=== PATIENT | male | born 1945 | race Caucasian/White ===

== ENCOUNTER → 2023-11-08 10:12 | Outpatient (REF) | payer OTHER, SELFPAY | LOC: DHCBS MAIN 10:12 | PROVIDERS: ATTENDING PHYSICIAN Internal Medicine Cardiovascular Disease; FAMILY PHYSICIAN Family Medicine | DX: R93.1 Abnormal findings on diagnostic imaging of heart and coronary circulation (principal) | CPT/HCPCS: 93308 ==

== ENCOUNTER → 2024-08-07 06:34 | Day surgery (SDC) | payer OTHER, SELFPAY | LOC: GI 06:34 | PROVIDERS: ATTENDING PHYSICIAN Internal Medicine Gastroenterology | DX: K57.30 Diverticulosis of large intestine without perforation or abscess without bleeding (principal); K64.0 First degree hemorrhoids; K63.89 Other specified diseases of intestine; K50.00 Crohn's disease of small intestine without complications; K63.3 Ulcer of intestine; K22.70 Barrett's esophagus without dysplasia; K44.9 Diaphragmatic hernia without obstruction or gangrene; R19.7 Diarrhea, unspecified | CPT/HCPCS: 45380; 43239; 88305 ==

== ENCOUNTER → 2024-10-16 07:50 | Outpatient (REF) | payer OTHER, SELFPAY | LOC: MRI 3T 07:50 | PROVIDERS: ATTENDING PHYSICIAN Internal Medicine Gastroenterology; FAMILY PHYSICIAN Family Medicine | DX: K50.012 Crohn's disease of small intestine with intestinal obstruction (principal) | CPT/HCPCS: 72197; 74183; A9585 ==

== ENCOUNTER → 2024-12-22 13:17 | Outpatient (REF) | payer OTHER, SELFPAY | LOC: RAD 13:17 | PROVIDERS: ATTENDING PHYSICIAN Emergency Medicine; PRIMARYCARE PHYSICIAN Family Medicine | DX: R05.1 Acute cough (principal); K44.9 Diaphragmatic hernia without obstruction or gangrene; K21.9 Gastro-esophageal reflux disease without esophagitis | CPT/HCPCS: 71046 ==

== ENCOUNTER 2025-02-02 06:13 | Day surgery (SDC) | payer OTHER, SELFPAY ==
[2025-02-02 09:15] VITALS: BMI 29.4
[2025-02-02 09:16] VITALS: BMI 29.4
[2025-02-02 09:18] VITALS: BP 159/83
[2025-02-02 11:27] VITALS: BP 119/100
[2025-02-02 11:30] VITALS: BP 116/56
[2025-02-02 11:45] VITALS: BP 141/114
[2025-02-02 11:47] VITALS: BP 144/77
== END 2025-02-02 12:00 | disposition home or self-care (01) ==
LOC: GI 06:13
PROVIDERS: ATTENDING PHYSICIAN Internal Medicine Gastroenterology
DX: K86.2 Cyst of pancreas (principal); K86.89 Other specified diseases of pancreas; Q45.3 Other congenital malformations of pancreas and pancreatic duct; R93.3 Abnormal findings on diagnostic imaging of other parts of digestive tract
CPT/HCPCS: 43259

== ENCOUNTER → 2025-03-19 10:46 | Outpatient (REF) | payer OTHER, SELFPAY | LOC: DHSLP 10:46 | PROVIDERS: ATTENDING PHYSICIAN Internal Medicine Critical Care Medicine; FAMILY PHYSICIAN Family Medicine | DX: G47.30 Sleep apnea, unspecified (principal); R06.83 Snoring | CPT/HCPCS: 95800 ==

== ENCOUNTER 2025-03-24 10:22 | Inpatient (IN) | payer OTHER, SELFPAY ==
[2025-03-24] VITALS (59 sets, daily range): BP systolic 94–200; BP diastolic 47–164; BMI 28.4
[2025-03-24 08:47] LABS: Glucose - Point of Care 129 mg/dl (70-99)
--- NOTE | 2025-03-24 08:48 | CON.NEURO ---
Consultation
Order
Date of Consultation: 03/24/25
Requesting Provider: Alonso Delgado MD
Reason for Consult: Stroke alert
Called in: 8:34 AM
Neurology Consultation Note.
HPI: This is an 79-year-old left-handed man who presented to [facility] on 03/24/2025 with left-sided weakness and dysarthria.
According to the patient he woke up around 6:00 in usual state of health. Within 30 minutes he noted that his left arm is clumsy and he dropped his glasses. His spouse noted him having left-sided weakness around 8:15 AM and contacted 911. No
reports of headache, chest pain, recent surgeries, hematochezia or hematuria. Mr. Randall is not on anticoagulants.
ER VS: 130/105-196/110, 116, afebrile
Telemetry�irregular.
PDMP:Testosterone 1.62% Gel Pump
Labs: Normal platelets, PT, PTT
CT/P head-hypoperfusion in the right MCA territory with a central ischemic core of 0 mL, total volume of hypoperfusion of 84 mL, and a penumbra of 84 mL. The mismatch ratio is infinite.
head wo contrast
CTA head/neck-no thrombus or occlusion in the right middle cerebral artery M1 or M2 segments. The right MCA M3 segment demonstrates attenuation of intraluminal contrast, with contrast opacification in the more distal segments, suggesting M3 segment
nonocclusive thrombus.
PMH: Prostate cancer, HTN, vitamin D deficiency, GERD
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
FH: Not contributory
All:NKDA
ROS: Negative for headache, chest pain
NIH Stroke Scale
1A Level of Consciousness: 0/3
1B LOC Questions: 0/2
1C LOC Commands: 0/2
2 Best Gaze: 0/2
3 Visual: 2/3
4 Facial Palsy: 2/3
5A Motor Arm LEFT: 2/4
5B Motor Arm RIGHT: 0/4
6A Motor Leg LEFT: 1/4
6B Motor Leg RIGHT: 0/4
7 Limb Ataxia: 2/2
8 Sensory: 1/2
9 Best Language: 0/3
10 Dysarthria: 1/2
11 Extinction/Inattention: 0/2
Total NIHSS: 11
Assessment and Plan:
I. Acute right M3 territory stroke. Etiology�cardioembolic.
II. New onset of A-fib
III. Vascular encephalopathy
-Telemetry monitoring.
-STAT IV Tenecteplase a single bolus at 0.25 mg/kg
-Please administer IV Labetalol 5-10mg prior TNK administration if BP>180/110
-Neuro checks while in the ED � Q15 minutes.
-Maintain euvolemia using 0.9% NaCl.
-Strictly follow I�s & O�s.
-Avoid antihypertensive medications unless MAP is persistently higher than 130
-Treat persistently elevated MAP>130 with IV Labetalol.
- NPO, especially if the level of arousal is depressed.
-NGT after the 2nd day for nutrition and meds if dysarthria or dysphagia present;
-Maintain elevation of HOB 30-45 degrees.
- Utilize a pneumatic compression device for DVT prophylaxis.
- For anticoagulation-related hemorrhage: aggressive reversal using FFP, Vitamin K, protamine sulfate.
-No antiplatelet agents nor anticoagulants, including heparin, low molecular weight heparin, heparinoids, warfarin, ASA and other antiplatelet agents, and NSAIDs;
-Monitoring of vital signs and neurologic status should be performed every hour.
-For any worsening of neurologic condition:
a.����� STAT head CT
�������������������������������������������������������������� b.����� STAT neurologic consult for evaluation
��������������������������������������������������������������� c.���� STAT Neurosurgical consult for evaluation
���������������������������
-MRI brain wo rocío
-MRA head/neck
-TTE
�-SCD/TEDs
I personally reviewed all radiology and labs along with past medical records pertinent to current medical problems. Total time spent in patient care is 80 minutes.
Thank you for allowing us to participate in the care of this patient. We will continue to follow. Please do not hesitate to contact us with any questions or concerns.
Subjective/Objective
Subjective Data
Date of Service: March 24, 2025
Objective Data
Patient Allergies
No Known Allergies Allergy (Verified 02/02/25 09:01)
Medications
-
Home Medications
�Medication �Instructions �Recorded
cholecalciferol (vitamin D3) 50 2,000 units PO DAILY Supplement 05/30/20
mcg (2,000 unit) tablet
glucosamine sulfate dipotassium Cl 1 cap PO DAILY Supplement 05/30/20
500 mg-chondroitin 400 mg capsule
(Glucosamine Sulfate 2
KCL-Chondroitin)
multivitamin with folic acid 400 1 tab PO DAILY Supplement 05/30/20
mcg tablet (Tab-A-Jean Pierre)
omega 9-hmh-avn-fish oil 300 1 ea PO DAILY Supplement 05/30/20
mg-1,000 mg capsule (Fish Oil)
omeprazole 20 mg capsule,delayed 40 mg PO DAILY Gastrointestinal 05/30/20
release issue
zolpidem 5 mg tablet 2.5 mg PO HSPRN PRN sleep 05/30/20
valsartan 80 mg tablet 160 mg PO DAILY Blood pressure 10/20/21
acetaminophen 325 mg tablet 650 mg (2 x 325 mg) PO Q4HWA 10/30/21
amlodipine 5 mg tablet 5 mg PO DAILY 01/28/23
choline bitartrate 650 mg tablet 650 mg PO DAILY 01/28/23
coenzyme Q10 100 mg capsule 300 mg PO DAILY 01/28/23
(CoQ-10)
garlic 5,000 mg capsule 5,000 mg PO DAILY 01/28/23
Boswellia john extract-turmeric 1 cap PO DAILY 02/02/25
root extract 500 mg capsule
ascorbic acid (vitamin C) 1,000 mg 2,000 mg PO DAILY 02/02/25
tablet (Vitamin C)
ashwagandha extract 3,000 mg PO DAILY 02/02/25
collagen (bovine) 40 mg PO DAILY 02/02/25
testosterone 1 applic topical DAILY 02/02/25
vit C 250 mg-vit E 200 unit-zinc 2 cap PO DAILY 02/02/25
ox 12.5 [id number]-ouddle-zeax
capsule
vitamin B complex 1 tab PO DAILY 02/02/25
vitamin K2 100 mcg capsule 100 mcg PO DAILY 02/02/25
Vital Signs and Labs
-
Vital Signs and Labs:
Vital Signs
Pulse Resp BP Pulse Ox
96 16 133/89 93
03/24/25 09:37 03/24/25 09:37 03/24/25 09:37 03/24/25 09:33
Lab Results
03/24/25 08:44
03/24/25 08:44
PT 13.7 Sec (11.4-14.6) 03/24/25 08:44
INR 1.00 03/24/25 08:44
APTT 32.6 Sec (23.4-35.0) 03/24/25 08:44
Sodium 141 mmol/L (135-145) 03/24/25 08:44
Potassium 3.7 mmol/L (3.5-5.1) 03/24/25 08:44
BUN 13 mg/dl (9-20) 03/24/25 08:44
Glucose 129 mg/dl (70-99) H 03/24/25 08:44
Calcium 8.2 mg/dl (8.4-10.2) L 03/24/25 08:44
Medications
-
Medications:
Generic Name Dose Route Start Last Admin
Trade Name Freq PRN Reason Stop Dose Admin
Acetaminophen 650 mg 03/24/25 08:57
Acetaminophen 325 Mg Tablet PO 04/21/25 08:56
Q4HPRN PRN
FALCON, mild pain, or temp >100.4F
Home Medications
-
Home Medications
cholecalciferol (vitamin D3) 50 mcg (2,000 unit) tablet 2,000 units PO DAILY Supplement 05/30/20
glucosamine sulfate dipotassium Cl 500 mg-chondroitin 400 mg capsule (Glucosamine Sulfate 2 KCL-Chondroitin) 1 cap PO DAILY Supplement 05/30/20
omega 2-yfa-nbh-fish oil 300 mg-1,000 mg capsule (Fish Oil) 1 cap PO DAILY Supplement 05/30/20
omeprazole 20 mg capsule,delayed release 40 mg PO DAILY Gastrointestinal issue 05/30/20
valsartan 80 mg tablet 160 mg PO DAILY Blood pressure 10/20/21
amlodipine 5 mg tablet 5 mg PO DAILY 01/28/23
coenzyme Q10 100 mg capsule (CoQ-10) 400 mg PO DAILY 01/28/23
Boswellia john extract-turmeric root extract 500 mg capsule 1 cap PO DAILY 02/02/25
vitamin K2 100 mcg capsule 100 mcg PO DAILY 02/02/25
ascorbic acid 30 mg-collagen, hydrolyzed 833.3 mg tablet (Collagen Skin Renewal) 1 tab PO DAILY 03/24/25
famotidine 40 mg tablet (Pepcid) 40 mg PO DAILY 03/24/25
fluticasone propionate 44 mcg/actuation HFA aerosol inhaler 1 puff inhalation R BIDPRN PRN sob 03/24/25
magnesium glycinate 100 mg (as glycinate) tablet 100 mg PO DAILY 03/24/25
testosterone 3 pump topical DAILY 03/24/25
vitamin A 2,400 mcg capsule 2,400 mcg PO DAILY 03/24/25
vitamin B complex 1 tab PO DAILY 03/24/25
[2025-03-24 08:57] LABS: % Basophils 0.5 % (0-2); % Eosinophils 2.3 % (0-6); % Immature Granulocytes 0.4 % (0-0.5); % Lymphocytes 16.5 % (20.5-51.1); % Monocytes 7.7 % (1.7-9.3); % Neutrophils 72.6 % (42.2-75.2); Absolute Eosinophils 0.2 10^3/uL (0-0.7); Absolute Lymphocytes 1.4 10^3/uL (1.2-3.4); Absolute Monocytes 0.7 10^3/uL (0.1-0.6); Absolute Neutrophils 6.2 10^3/uL (1.4-6.5); Hemoglobin 13.7 g/dL (13.0-18.0); Mean Corp Hgb Conc. 34.3 g/dL (33.0-37.0); Mean Corpuscular Hgb 29.8 pg (27.0-31.0); Mean Corpuscular Volume 87.1 fL (80.0-94.0); Mean Platelet Volume 8.5 fL (7.4-10.4); Nucleated Red Blood Cells % 0 % (-); Platelet Count 201 10^3/uL (130-400); Red Blood Cell Count 4.59 10^6/uL (4.70-6.10); Red Cell Dist. Width 14.3 % (11.5-14.5); White Blood Cell Count 8.5 10^3/uL (4.8-10.8)
[2025-03-24 09:08] LABS: PT 13.7 Sec (11.4-14.6)
[2025-03-24 09:09] LABS: APTT 32.6 Sec (23.4-35.0)
[2025-03-24] MEDS: TRANDATE 10 MG IV (09:15)
[2025-03-24 09:19] LABS: ALT (SGPT) 14 U/L (0-50); AST (SGOT) 18 U/L (17-59); Alkaline Phosphatase 64 U/L (38-126); Blood Urea Nitrogen 13 mg/dl (9-20); Calcium 8.2 mg/dl (8.4-10.2); Carbon Dioxide 23 mmol/L (22-30); Chloride 110 mmol/L (98-107); Glucose 129 mg/dl (70-99); Potassium 3.7 mmol/L (3.5-5.1); Sodium 141 mmol/L (135-145); Total Bilirubin 1.1 mg/dl (0.2-1.3); Total Protein 6.3 g/dl (6.3-8.2); eGFR > 60.00
[2025-03-24] MEDS: TNKASE 4.4 MG IV (09:21)
--- NOTE | 2025-03-24 09:29 | ED.CVA ---
History of Present Illness
General
Chief Complaint: CVA/TIA Symptoms
Time Seen by Provider: 03/24/25 08:49
Onset of Stroke Symptoms
Onset of symptoms known: Yes
Date of onset of symptoms: 03/24/25
History of Present Illness
History of Present Illness:
Patient presents to the emergency department with strokelike symptoms. States that he was feeling his usual self but around 7 AM to 8AM he began feeling dizzy. He also noticed left-sided weakness and difficulty speaking
Past History
Past History
ED Past Medical History: GERD and HTN
ED Past Surgical History: Appendectomy and Bowel resection
Phy Exam
Physical Exam
Physical Exam:
GENERAL APPEARANCE: NAD, well developed/ well nourished
EYES lids/conjunctiva normal
EARS/NOSE/THROAT Mucous membranes moist, uvula midline without oral pharyngeal erythema, exudate or swelling
HEAD/NECK normocephalic atraumatic, neck is supple.
RESPIRATORY respiratory effort normal, speaks in full sentences, no accessory muscle use. Lungs clear to auscultation without rhonchi, wheezes, rales
CARDIAC irregularly irregular rhythm, tachycardia
ABDOMINAL Soft, ND/NT. No pulsatile masses on exam, rebound tenderness, Gomes sign or pain over Mcburney's point.
MUSCLES/EXTREMITIES No abnormal range of motion, no swelling.
SKIN Warm, pink and dry. No rashes
NEUROLOGICAL patient is awake and alert and oriented x 2. He has some dysarthria. He has a left-sided facial droop that can be overcome. He has a left upper extremity and left lower extremity drift. He has left-sided neglect
Course
Orders/Labs/Results
Orders:
Orders
03/24/25 08:42
CT HEAD STROKE ALERT W/o Cont Urgent
Comment:
Reason For Exam: left side weakness
03/24/25 08:43
Electrocardiogram (*1) Urgent
Reason for Study: Other
Other Reason for Exam: Possible Stroke
Bedside Glucose- Treatment ONCE
Cardiac Monitoring- Treatment ONCE
EKG- Treatment ONCE
IV Insert/Care/Rem.- Treatment PRN
Vital Signs As Directed
Frequency: Other
Weight As Directed
Frequency: Once
Comment: ZERO STRETCHER SCALE FOR ACCURATE WEIGHT
O2 Therapy [RESP] Urgent
Titrate/Wean O2 to maintain O2 sat greater than (%): 93
Special Instructions: MAINTAIN CONTINUOUS O2 SATS > OR = 93%
03/24/25 08:44
Complete Blood Count/With Diff Urgent
Comprehensive Metabolic Panel Urgent
PTT Urgent
Prothrombin Time Urgent
Troponin I Urgent
03/24/25 08:49
CT BRAIN PERF STROKE ALERT Urgent
Comment:
Reason For Exam: L HP
CT HEAD/NECK ANG STROKE ALERT Stat
Comment:
Reason For Exam: stroke
03/24/25 08:57
Code Status As Directed
Resuscitation Status: Full Code
Acetaminophen [Tylenol] 650 mg PO Q4HPRN PRN
03/24/25 08:58
Case Management Consult Once
Case Management Consult: Discharge Planning
DIETARY IP CONSULT Routine
Reason for Consult: stroke/TIA
Press Loader Consult Routine
Consulting Provider: Richard Chin
Was physician already notified: Yes
NEUROLOGY CONSULT Urgent
Consulting Provider: Sneha Christie
Was physician already notified: Yes
Street Vendor Urgent
MR Brain Without Contrast Routine
Comment: complete 24 hrs post tenecteplase administration
Reason For Exam: possible stroke, status post tenecteplase
OK for patient to be off Cardiac Monitoring for MRI: No
Recent pill cam endoscopy?: No
Hemetest Stools As Directed
Comment: hemoccult all stools if patient received tenecteplase
NIH Stroke Scale As Directed
Directions: Other
Comment: NIH stroke Scale to be completed prior to thrombolytic administration, then every 1 hour for 2
hours, then every shift and with change in condition and/or mental status.
Neurological Checks As Directed
Frequency: Per unit guidelines
Additional Instructions:: after start of thrombolytic therapy:
q15min x 2 hrs, q30min x 6 hrs, q1h x 16 hrs, q4h x 24 hrs, then every shift and
with any changes.
Notify MD As Directed
Notify physician if: - Any deterioration, change in neurological status, development of severe headache,
nausea and vomiting, or with any signs of bleeding. (see guidelines for suspected
intracerebral hemorrhage).
- If intracranial hemorrhage is suspected or confirmed by imaging, anticipate need for
osmotic diuretic to maintain euvolemia.
Notify MD As Directed
Notify physician if: Glucose less than 70 or greater than 180.
Anticipate corrective insulin orders.
Notify MD As Directed
Notify physician if: unable to obtain MRI of head within 22-32 hours of tenecteplase administration
- contact Neurology for order for CT of head without contrast
Patient Education As Directed
Type: Stroke education packet
Comment: provide to patient and family
Pneumatic Compression Sleeves As Directed
Type: Knee high
Precautions As Directed
Type of Precautions: Bleeding
Comment: post Bleeding Precaution sign at bedside (if patient received tenecteplase)
Swallow Screening CVA/TIA ONLY As Directed
Comment: NPO until swallow screening completed
If patient FAILS swallow screening:: NPO and Speech consult and aspiration precautions
If patient PASSES swallow screening, diet:: Regular
Thrombolytic Precautions As Directed
Thrombolytic Precautions:: [place] bleeding precautions. Minimize invasive procedures and venipunctures,
avoid IM injections and over-handling patient, and check all puncture sites for
bleeding. Assess the patient and notify provider for signs and symptoms of
internal or serious bleeding, such as changes in vital signs or evidence of blood
in the urine or stool.
Additional instructions: Hemocult all stools.
Apply direct pressure or pressure dressing to any compressible puncture sites.
No ABG sampling or Espinoza insertion after Tenecteplase administration for 24 hours,
unless directed by the Neurologist/Attending.
Vital Signs As Directed
Frequency: q15m
Call for:: BP greater than 180/105 mmHg or less than 100/60 mmHg
Additional Instructions:: after start of thrombolytic therapy:
q15min x 2 hrs, q30min x 6 hrs, q1h x 16 hrs, q4h x 24 hrs, then every shift and
with any changes.
CR Chest Single View Urgent
Reason For Exam: stroke/TIA
Ot Eval And Treat Routine
Physiatry Consult Routine
Consulting Provider: Sneha Christie
Was physician already notified: Yes
Reason for consult: stroke/TIA
Pt Eval And Treat Routine
Activity Level: As Tolerated
Speech Therapy Eval & Treat Routine
DX Deep Vein Thrombosis Video Routine
03/24/25 09:08
Tenecteplase [Tnkase] 22 mg Syringe [Syringe Non-Pump] 0 ml IV NOW
Provider explained risk/benefits to patient &/or caregiver?: Yes
03/24/25 09:12
Labetalol HCl [Trandate] 20 mg .ROUTE .STK-MED ONE
03/24/25 09:14
Labetalol HCl [Trandate] 10 mg IV NOW STA
03/24/25 10:06
Admit/Transfer Patient As Directed
Co-Sign Provider:
Level of Care: Inpatient admission
Assign to:: ICU
Physician / Group: pasricha/medicine
Diagnosis: cva, afib
Reason for Hospitalization: cva s/p tnk; afib
Expected length of stay greater than two midnights?: Yes
ELOS- Estimated Length of Stay in days: 3
I certify the patient meets the requirements for IP care: Yes
PRN Pain Medication Management As Directed
May give lesser potent ordered pain med per pt: Yes
preference::
Protocol:: Medication orders for pain may be administered in a
manner that supports deferring to patient preference
when the pt is:
- Requesting an ordered lesser potent pain medication.
Least to most potent pain medications are defined
as: acetaminophen < NSAID < tramadol < opioids
(morphine, oxycodone, hydromorphone).
- Requesting a lesser dose of the same medication IF
ORDERED.
- Requesting a less intrusive route of administration
if both routes are prescribed by the provider (PO <
IV).
03/24/25 10:23
Acetaminophen [Tylenol] 650 mg PO Q4HPRN PRN
FLUTICASONE PROPIONATE 44 mcg [Flovent 44 Mcg Inhaler] 1 puff INH R BIDPRN PRN sob
03/24/25 10:23
Echo 2D MMode Color/Doppler Routine
Reason for Study: stroke/TIA
Electrocardiogram (*1) Routine
Reason for Study: TIA/Stroke
CARDIOLOGY CONSULT Routine
Consulting Provider: Barrera Tristan
Was physician already notified: Yes
Case Management Consult Once
Case Management Consult: Discharge Planning
DIETARY IP CONSULT Routine
Reason for Consult: stroke/TIA
Press Loader Consult Routine
Consulting Provider: Rojelio Pepe
Was physician already notified: Yes
NEUROLOGY CONSULT Urgent
Consulting Provider: Sneha Christie
Was physician already notified: Yes
Street Vendor Urgent
TSH Reflex To Free T4 Routine
NIH Stroke Scale As Directed
Directions: Other
Comment: NIH stroke Scale to be completed prior to thrombolytic administration, then every 1 hour for 2
hours, then every shift and with change in condition and/or mental status.
Neurological Checks As Directed
Frequency: Per unit guidelines
Additional Instructions:: after start of thrombolytic therapy:
q15min x 2 hrs, q30min x 6 hrs, q1h x 16 hrs, q4h x 24 hrs, then every shift and
with any changes.
Notify MD As Directed
Notify physician if: - Any deterioration, change in neurological status, development of severe headache,
nausea and vomiting, or with any signs of bleeding. (see guidelines for suspected
intracerebral hemorrhage).
- If intracranial hemorrhage is suspected or confirmed by imaging, anticipate need for
osmotic diuretic to maintain euvolemia.
Notify MD As Directed
Notify physician if: Glucose less than 70 or greater than 180.
Anticipate corrective insulin orders.
Notify MD As Directed
Notify physician if: unable to obtain MRI of head within 22-32 hours of tenecteplase administration
- contact Neurology for order for CT of head without contrast
Patient Education As Directed
Type: Stroke education packet
Comment: provide to patient and family
Pneumatic Compression Sleeves As Directed
Type: Knee high
Precautions As Directed
Type of Precautions: Bleeding
Comment: post Bleeding Precaution sign at bedside (if patient received tenecteplase)
Swallow Screening CVA/TIA ONLY As Directed
Comment: NPO until swallow screening completed
If patient FAILS swallow screening:: NPO and Speech consult and aspiration precautions
If patient PASSES swallow screening, diet:: Cholesterol Lowering
Thrombolytic Precautions As Directed
Thrombolytic Precautions:: [place] bleeding precautions. Minimize invasive procedures and venipunctures,
avoid IM injections and over-handling patient, and check all puncture sites for
bleeding. Assess the patient and notify provider for signs and symptoms of
internal or serious bleeding, such as changes in vital signs or evidence of blood
in the urine or stool.
Additional instructions: Hemocult all stools.
Apply direct pressure or pressure dressing to any compressible puncture sites.
No ABG sampling or Espinoza insertion after Tenecteplase administration for 24 hours,
unless directed by the Neurologist/Attending.
Vital Signs As Directed
Frequency: q15m
Call for:: BP greater than 180/105 mmHg or less than 100/60 mmHg
Additional Instructions:: after start of thrombolytic therapy:
q15min x 2 hrs, q30min x 6 hrs, q1h x 16 hrs, q4h x 24 hrs, then every shift and
with any changes.
Ot Eval And Treat Routine
Physiatry Consult Routine
Consulting Provider: Rowdy Conroy
Was physician already notified: Yes
Reason for consult: stroke/TIA
Pt Eval And Treat Routine
Activity Level: As Tolerated
Speech Therapy Eval & Treat Routine
DX Deep Vein Thrombosis Video Routine
03/25/25 06:00
Basic Metabolic Panel IN AM
Cardiovascular Evaluation IN AM
Complete Blood Count/No Diff IN AM
PTT IN AM
Prothrombin Time IN AM
03/25/25 08:00
Famotidine [Pepcid] 40 mg PO DAILY
Pantoprazole [Protonix] 40 mg PO DAILY
03/26/25 06:00
Basic Metabolic Panel IN AM
Complete Blood Count/No Diff IN AM
03/27/25 06:00
Basic Metabolic Panel IN AM
Complete Blood Count/No Diff IN AM
03/28/25 06:00
Basic Metabolic Panel IN AM
Complete Blood Count/No Diff IN AM
Abnormal Lab Results
03/24/25 03/24/25
08:44 08:46
RBC 4.59 L 10^6/uL
(4.70-6.10)
Absolute Monos (auto) 0.7 H 10^3/uL
(0.1-0.6)
Lymphocytes % 16.5 L %
(20.5-51.1)
Chloride 110 H mmol/L
(98-107)
Glucose 129 H mg/dl
(70-99)
Calcium 8.2 L mg/dl
(8.4-10.2)
POC Glucose 129 H mg/dl
(70-99)
03/24/25 08:44
03/24/25 08:44
Vital Signs
Initial and Last Documented VS:
Initial Vital Signs
Pulse Resp BP Pulse Ox
116 16 130/105 93
03/24/25 08:56 03/24/25 08:56 03/24/25 08:56 03/24/25 08:56
Last Documented Vital Signs
Pulse Resp BP Pulse Ox
114 21 111/98 96
03/24/25 12:30 03/24/25 12:30 03/24/25 12:30 03/24/25 12:30
*Pulse Oximetry
SaO2: 93
Oxygen Mode of Delivery: Room air
*Critical Care Note
Total Time (30-74mins, 75-104mins- exclusive of procedures): 30 minutes
comment:
30 minutes of critical care time
ED Attending Note
ED Attending Note
ED Attending Note:
Patient presents with signs and symptoms concerning for large right-sided cerebral infarct. Prehospital stroke alert was called Differential includes ICH, ischemic CVA including large vessel occlusion. CT head without contrast is negative for
bleed. . Neurology at the bedside. Given he is within the window, TNK was given. Patient found to be in new onset atrial fibrillation which likely caused a thromboembolic stroke. Initial blood pressure 196/110. Labetalol 10 mg IV push was
ordered to control blood pressure prior to thrombolytics.
CTA without LVO. Possible nonocclusive M3 thrombus. Will admit to ICU for continued management and post thrombolytic monitoring
-
Portions of this chart may have been created with voice recognition software.� Occasional wrong word or��sound alike� substitutions may have occurred due to the inherent limitations of voice recognition software.
Discharge Plan
Departure
Patient Disposition: Admit
Date of Disposition: 03/24/25
Time of Disposition: 09:46
Admit to: ICU
Presentation/result/management discussed w/ accepting MD/DO: Hospitalist
Discharge Problem:
Acute ischemic right MCA stroke
Interventions
Interventions:
*Risk Screen - Suicide Last Done: 03/24/25 10:38
*General Assessment Last Done: 03/24/25 10:38
*Neglect/Abuse Screening Last Done: 03/24/25 09:34
*ED- Fall Risk Assessment Last Done: 03/24/25 10:38
*ED COVID-19 Vaccine History Last Done: 03/24/25 10:38
*Nursing Disposition Last Done: 03/24/25 10:38
ED- Pulmonary Assessment Last Done: 03/24/25 10:01
ED- Neurological Assessment Last Done: 03/24/25 10:01
ED- Cardiac Assessment Last Done: 03/24/25 09:23
ED Swallowing Screen Last Done: 03/24/25 09:43
Discharge Date and Time
Discharge Date/Time: 03/24/25 10:39
[2025-03-24 09:31] LABS: Troponin I 0.021 ng/ml
--- NOTE | 2025-03-24 10:45 | PTCARENOTE ---
Pt arrived to Rm [id number] via stretcher from ED at 1025. This RN unable to attest to assessment findings or vital signs prior to pt arrival in ICU at 1025. Pt arrived awake, Ox3 with appropriate conversation at time of arrival. NIHSS assessment
completed w/ ED RN- slight improvement noted in movement of Lt upper and lower extremities. Pt noted to have slight Lt facial droop w/ tongue deviating to Lt. Mild dysarthria w/ speech fully comprehensible. Lt UE ataxia noted. Pt unaware of when
touching Lt UE/LE/side of face and reports 'numbness' of Lt arm. Pt noted to have decreased vision in upper left quadrant of Lt eye. Pt received on O2 at 2l/min via NC w/ Pox 95%. Pt denies SOB. Physical assessment completed as documented. Pt
expressed need to frequently void. Offered condom catheter placement which pt agreed to- placed.
--- NOTE | 2025-03-24 11:35 | PTCARENOTE ---
Dr Delgado in room to see pt. Updated on NIHSS findings. Pt restless at times, but denies pain or discomfort. Comfort care provided. Call raul w/in pt reach and pt able to demonstrate it's use. Save environment maintained.
--- NOTE | 2025-03-24 11:56 | CON.INTV ---
Consultation
Consultation Request
Date/Time Consultation Requested: 03/24/2025
Date/Time Consultation Performed: 03/24/2020
Requesting Provider: Dr. Delgado
Performing Provider: Dr. Rojelio Saxena
Reason for Consultation: Acute CVA status post tenecteplase
Medical History
-
History of Present Illness:
79-year-old male left handed who presented to [facility] on 03/24/2025 with left-sided weakness and dysarthria. Apparently he woke up at 6 AM on his usual state of health. Within 30 minutes of arousing left arm for clumsy and weak. There is
no reports of headache, blurry vision, nausea, vomiting or lethargy.
Patient was diagnosed with a right sided CVA. Received tenecteplase in the emergency room.
In the critical care unit he states that left-sided weakness and numbness has improved.
Continues to have slurred speech.
Diagnosed with new onset atrial fibrillation. Not hypotensive. Denies palpitations. He follows with cardiology.
Past Medical History
Past Medical History: Other (See assessment and plan)
Social History
Tobacco: Former Smoker (Light smoker)
Alcohol: None
Personal:
Living: With Family
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
Family History
Family History: Reviewed & Not Pertinent
Allergies / Home Medications
Allergies
Allergy/AdvReac Type Severity Reaction Status Date / Time
No Known Allergies Allergy Verified 02/02/25 09:01
Home Medications
�Medication �Instructions �Recorded �Confirmed �Last Taken �Type
cholecalciferol (vitamin D3) 50 2,000 units PO DAILY Supplement 05/30/20 03/24/25 5 Days Ago History
mcg (2,000 unit) tablet ~01/28/25
glucosamine sulfate dipotassium Cl 1 cap PO DAILY Supplement 05/30/20 03/24/25 5 Days Ago History
500 mg-chondroitin 400 mg capsule ~01/28/25
(Glucosamine Sulfate 2
KCL-Chondroitin)
omega 4-nik-ngb-fish oil 300 1 cap PO DAILY Supplement 05/30/20 03/24/25 5 Days Ago History
mg-1,000 mg capsule (Fish Oil) ~01/28/25
omeprazole 20 mg capsule,delayed 40 mg PO DAILY Gastrointestinal 05/30/20 03/24/25 02/01/25 08:00 History
release issue
valsartan 80 mg tablet 160 mg PO DAILY Blood pressure 10/20/21 03/24/25 02/01/25 08:00 History
amlodipine 5 mg tablet 5 mg PO DAILY 01/28/23 03/24/25 02/01/25 08:00 History
coenzyme Q10 100 mg capsule 400 mg PO DAILY 01/28/23 03/24/25 5 Days Ago History
(CoQ-10) ~01/28/25
Boswellia john extract-turmeric 1 cap PO DAILY 02/02/25 03/24/25 5 Days Ago History
root extract 500 mg capsule ~01/28/25
vitamin K2 100 mcg capsule 100 mcg PO DAILY 02/02/25 03/24/25 5 Days Ago History
~01/28/25
ascorbic acid 30 mg-collagen, 1 tab PO DAILY 03/24/25 03/24/25 Unknown History
hydrolyzed 833.3 mg tablet
(Collagen Skin Renewal)
famotidine 40 mg tablet (Pepcid) 40 mg PO DAILY 03/24/25 03/24/25 Unknown History
fluticasone propionate 44 1 puff inhalation R BIDPRN PRN sob 03/24/25 03/24/25 Unknown History
mcg/actuation HFA aerosol inhaler
magnesium glycinate 100 mg (as 100 mg PO DAILY 03/24/25 03/24/25 Unknown History
glycinate) tablet
testosterone 3 pump topical DAILY 03/24/25 03/24/25 Unknown History
vitamin A 2,400 mcg capsule 2,400 mcg PO DAILY 03/24/25 03/24/25 Unknown History
vitamin B complex 1 tab PO DAILY 03/24/25 03/24/25 Unknown History
Review of Systems
-
History Source: Patient
All other systems: Negative unless noted
Vitals / Labs / Diagnostic Testing
Vital Signs
Pulse Resp BP Pulse Ox
115 28 141/109 97
03/24/25 11:15 03/24/25 11:15 03/24/25 11:15 03/24/25 11:15
Lab Data
03/24/25 08:44
03/24/25 08:44
Laboratory Results
03/24/25
08:44
PT 13.7
INR 1.00
APTT 32.6
Diagnostic Testing:
Physical Exam
-
HEENT: Normocephalic
Cardiovascular: S1/S2 and Irregular Rhythm
Respiratory: Non-Labored Respirations
GI: Soft
Neurology: Awake, Oriented, AO x 3 and Other (Slurred speech)
Skin: Warm
General: Comfortable
Assessment
-
79-year-old man with past medical history noted, admitted to the hospital with left-sided weakness. Found to have right MCA territory stroke. Status post tenecteplase. Also found to have new onset atrial fibrillation. Transferred to the critical
care unit for monitoring per protocol.
Acute right M3 territory stroke. Etiology�cardioembolic.- Status post tenecteplase 03/24/2025
CT/P head-hypoperfusion in the right MCA territory with a central ischemic core of 0 mL, total volume of hypoperfusion of 84 mL, and a penumbra of 84 mL. The mismatch ratio is infinite.head wo contrast
CTA head/neck-no thrombus or occlusion in the right middle cerebral artery M1 or M2 segments. The right MCA M3 segment demonstrates attenuation of intraluminal contrast, with contrast opacification in the more distal segments, suggesting M3
segment nonocclusive thrombus.
New onset atrial fibrillation.
Conditions present prior admission:
Prostate cancer
Hypertension
Vitamin D deficiency
GERD
-
Assessment and plan:
Admitted to the intensive care unit for close hemodynamic/neurologic monitoring.
Left-sided weakness improved
Continues to have slurred speech.
Monitor for bleeding post tenecteplase.
-Neuro checks every hour.
-Maintain euvolemia using 0.9% NaCl.
-Avoid antihypertensive medications unless MAP is persistently higher than 130
-Treat persistently elevated MAP>130 with IV Labetalol on as needed basis.
Eventually restart antihypertensive usually on valsartan.
- NPO-until cleared by speech.
-Maintain elevation of HOB 30-45 degrees.
- Utilize a pneumatic compression device for DVT prophylaxis.
-No antiplatelet agents nor anticoagulants, including heparin, low molecular weight heparin, heparinoids, warfarin, ASA and other antiplatelet agents, and NSAIDs;
-
-For any worsening of neurologic condition: STAT head CT
-MRI brain wo rocío in the next 24 hours
-MRA head/neck
-
Eventual physical therapy/Occupational Therapy
-
New onset atrial fibrillation: Mildly tachycardic but normotensive.
Eventual start anticoagulation
TTE has been ordered.
Cardiology has been consulted.
-
Simple snoring: Negative home sleep study 03/19/2025.
-
Discussed with primary team
Will continue to follow
--- NOTE | 2025-03-24 11:57 | CM ---
Initial assessment completed with patient who lives with his deb of 19 years in a 2 story town home with no basement, B/B on 2nd floor and 1/2 bath on 1st with no steps to enter. MANAGER RN patient was independent in ADL's and ambulation, drove, no
DME or in-home services. He is active. Support system is deb. He has a son in [place] and a daughter in [place]. Does have a HC-POA. No service. Deb was diagnosed with liver cancer and nodules on lungs yesterday. PCP is
Noam Brooks and Pharmacy is [facility] on [address] in . Discharge POC: TBD. Based on medical progression and therapy evaluation/recommendations.
--- NOTE | 2025-03-24 12:10 | PTCARENOTE ---
Return phone call placed to pt's dtr 'Judy'- updated on pt's present condition, plan of care. Phone call then transferred into pt's room and pt spoke to dtr. Pt demonstrating some improvement in stroke symptoms as documented in worklist
intervention.
--- NOTE | 2025-03-24 12:43 | CON.CAR ---
Addendum entered and electronically signed by Barrera Tristan MD 03/24/25 17:30:
In the short-term while blood pressure management is still an issue we will start amiodarone 200 mg p.o. 3 times daily try to maintain sinus rhythm. Continue to follow on telemetry. Would hold off on Toprol for today.
Addendum entered and electronically signed by Barrera Tristan MD 03/24/25 17:29:
I saw and examined the patient.
The [facility]'s note was reviewed and I agree with the note.
Comment:
GEN: No distress, awake, Ox3
HEENT: supple, anicteric, mmm
LUNGS: CTA, no wheezes/rales
CV: Reg, S1/S2, /6 syst LSB, no gallop
ABD: soft, BS+, NT/ND
EXT: No edema
NEURO: Mild dysarthria
SKIN: No rash
Plan:
79-year-old male with past medical history of hypertension, and possible CAD presents with acute episode of left-sided weakness and slurred speech. A right MCA territory CVA was suspected and the patient was given thrombolytic therapy with TNK. He
was also found to have new onset atrial fibrillation with rapid ventricular rates. His neurologic symptoms dramatically improved.
During his echocardiogram he was found to convert back into sinus rhythm and he currently is in sinus rhythm
Echocardiogram with a EF of 50% with basal inferior and inferoseptal hypokinesis and mild MR.
His chads Vascor is 6 and he requires long-term anticoagulation when stable from a neurological standpoint.
Would check lipids and start statin therapy. He likely also has coronary artery disease which has been treated conservatively in the past.
Continue to follow on telemetry. Would add low-dose Toprol 12.5mg while allowing for some permissive hypertension. Would stop amlodipine.
Original Note:
Consultation
Consultation Request
Date/Time Consultation Requested: 03/24/2025
Date/Time Consultation Performed: 03/24/2025
Requesting Provider: Dr. Delgado
Performing Provider: Dr. Tristan
Reason for Consultation: CVA new A-fib
Medical History
-
History of Present Illness:
Patient came to [facility] ER today with symptoms of stroke and was found to be in new A-fib, cardiology now consulted. Patient awoke in his usual state of health at about 0600 this morning and then started to notice that he was fumbling with his left
side and then his partner realized he was acting differently and at about 0815 911 was called and patient was brought to the ER. There was concern for right MCA territory CVA and patient was given TNK. Cardiology consulted for new diagnosis of
A-fib. Patient denies any palpitations, SOB, GRIMES, CP or other new or different symptoms leading up to admission. Patient was seen in the office on 03/12/2025 and was in SR. There is no history of paroxysmal A-fib.
PMH:
Preserved EF with stable WMA including basal inferior, inferoseptal and inferolateral wall hypokinesis by echo 11/08/2023 and again 03/24/2025
HTN
Past Medical History
Past Medical History: Other (In HPI)
Past Surgical History: Bowel Resection
Social History
Tobacco: Non-Smoker
Alcohol: None
Drug: None
Personal: Partner
Living: With Family
Family History
Family History: Cancer, Diabetes and Hypertension
Allergies / Home Medications
Allergy/AdvReac Type Severity Reaction Status Date / Time
No Known Allergies Allergy Verified 02/02/25 09:01
�Medication �Instructions �Recorded �Confirmed �Type
cholecalciferol (vitamin D3) 50 2,000 units PO DAILY Supplement 05/30/20 03/24/25 History
mcg (2,000 unit) tablet
glucosamine sulfate dipotassium Cl 1 cap PO DAILY Supplement 05/30/20 03/24/25 History
500 mg-chondroitin 400 mg capsule
(Glucosamine Sulfate 2
KCL-Chondroitin)
omega 7-vma-eeq-fish oil 300 1 cap PO DAILY Supplement 05/30/20 03/24/25 History
mg-1,000 mg capsule (Fish Oil)
omeprazole 20 mg capsule,delayed 40 mg PO DAILY Gastrointestinal 05/30/20 03/24/25 History
release issue
valsartan 80 mg tablet 160 mg PO DAILY Blood pressure 10/20/21 03/24/25 History
amlodipine 5 mg tablet 5 mg PO DAILY 01/28/23 03/24/25 History
coenzyme Q10 100 mg capsule 400 mg PO DAILY 01/28/23 03/24/25 History
(CoQ-10)
Boswellia john extract-turmeric 1 cap PO DAILY 02/02/25 03/24/25 History
root extract 500 mg capsule
vitamin K2 100 mcg capsule 100 mcg PO DAILY 02/02/25 03/24/25 History
ascorbic acid 30 mg-collagen, 1 tab PO DAILY 03/24/25 03/24/25 History
hydrolyzed 833.3 mg tablet
(Collagen Skin Renewal)
famotidine 40 mg tablet (Pepcid) 40 mg PO DAILY 03/24/25 03/24/25 History
fluticasone propionate 44 1 puff inhalation R BIDPRN PRN sob 03/24/25 03/24/25 History
mcg/actuation HFA aerosol inhaler
magnesium glycinate 100 mg (as 100 mg PO DAILY 03/24/25 03/24/25 History
glycinate) tablet
testosterone 3 pump topical DAILY 03/24/25 03/24/25 History
vitamin A 2,400 mcg capsule 2,400 mcg PO DAILY 03/24/25 03/24/25 History
vitamin B complex 1 tab PO DAILY 03/24/25 03/24/25 History
Review of Systems
-
History Source: Patient and Family (partner, Willian, and friend who is a retired surgeon bedside helping with HPI)
All other systems: Negative unless noted
Physical Exam
Vital Signs
Pulse Resp BP Pulse Ox
114 21 111/98 96
03/24/25 12:30 03/24/25 12:30 03/24/25 12:30 03/24/25 12:30
GEN: NAD. AAOx3
HEENT: EOMI, MMM
LUNGS: RA. Clear anterolaterally without wheeze
CV: Afib converting to SR during HPI. Reg, S1/S2, no murmur
ABD: ND
EXT: No clubbing, cyanosis, lesions or edema B/L
NEURO: Gross non-focal
SKIN: No rash
Lab Results
03/24/25 08:44
03/24/25 08:44
Troponin I 0.021 ng/ml 03/24/25 08:44
Impression / Plan
-
PCP: Dr. Brooks
Card: Dr. Leach
Impression:
Admitted with acute CVA 03/24/25
Acute right MCA territory CVA, treated with TNK 03/24/25
Newly diagnosed Afib of unclear duration
spontaneously converted to SR during echo 03/24/25
Preserved EF with stable WMA including basal inferior, inferoseptal and inferolateral wall hypokinesis by echo 11/08/2023 and again 03/24/2025
HTN
Echo 11/08/2023: EF 50 to 55%, hypokinesis of the basal inferior, inferoseptal and inferolateral [place], stage I diastolic dysfunction, normal RV size and function, trace MR, no AAS or AI, no clear mobile echodensity on the noncoronary cusp (this was
described in a 3 chamber view on prior echo 09/04/2023)
Echo 03/24/2025: Report pending, but preliminarily EF preserved at 50 to 55% with similar WMA changes
Plan:
-Patient came to [facility] ER today with symptoms of stroke and was found to be in new A-fib, cardiology now consulted. Patient awoke in his usual state of health at about 0600 this morning and then started to notice that he was fumbling with his left
side and then his partner realized he was acting differently and at about 0815 911 was called and patient was brought to the ER. There was concern for right MCA territory CVA and patient was given TNK. Cardiology consulted for new diagnosis of
A-fib. Patient denies any palpitations, SOB, GRIMES, CP or other new or different symptoms leading up to admission. Patient was seen in the office on 03/12/2025 and was in SR. There is no history of paroxysmal A-fib.
-ECG reviewed by me on admission shows A-fib with RVR, telemetry on my arrival to the room was also in A-fib, but during echo patient spontaneously converted to SR with PVCs and PACs on my review. Repeat ECG ordered by me.
- A-fib is a new diagnosis, patient appears to be asymptomatic. Patient spontaneously converted to SR during echo 03/24/2025.
-Will take the opportunity to start amiodarone 200 mg TID in an attempt to maintain SR, orders placed by me. Reviewed with the patient's significant other and also with his friend, who is a retired surgeon, potential long-term side effects of
amiodarone therapy. We talked about using amiodarone as a bridge to more definitive rhythm therapy when he is further out from the stroke event.
-Patient received TNK, neurology note reviewed, will eventually need OAC when cleared by neurology.
-Patient with previous abnormal echocardiogram, there was an echodensity in the noncoronary cusp of the aortic valve by echo in 2022, but this was not seen on echo in 2023. Repeat echo today is pending.
Patient also has a history of abnormal stress test and also evidence of WMA on echo. Last stress test was an exercise nuclear stress test 08/28/2023, completed 6 minutes Mark protocol for 7 METS of activity and 97% of MPHR with positive ECG
including [address] depression in leads II, III and aVF, but perfusion imaging showed only a small area of moderately decreased perfusion of his predominantly fixed in the basal inferior segment, mid inferolateral segment, mid inferior segment, apex,
apical inferior segment consistent with infarction that partially improves with prone imaging. The patient elected for medical management although could not exclude some element of CAD. Patient was not taking an aspirin a day prior to admission.
-CVE pending, patient was not taking a statin prior to admission.
--- NOTE | 2025-03-24 13:15 | PTOTSP ---
Speech Language Pathology
Pt seen for speech/language evaluations. Pt with mod dysarthria. He was 80% intelligible in known contexts, 70% in unknown contexts. Language evaluated via the Quick Aphasia Battery (QAB), form 1. Pt with an overall score of 9.64, indicative of
language skills WNL.
Pt also seen for clinical bedside swallow evaluation. P.O. trials of puree, regular solids, and thin liquids provided. Labial leakage of puree noted on L. Adequate mastication. No pocketing noted during evaluation. No overt signs of aspiration.
Recommend:
(1) Initiate regular solids/thin liquids
(2) Aspiration precautions: sit upright, slow rate, check for pocketing and labial leakage on L
(3) Meds as tolerated
(4) INSTRUMENT SETTER to continue to follow
--- NOTE | 2025-03-24 14:29 | HPS.HSE ---
Family Physician
-
Family Physician: Noam Brooks
Chief Complaint
-
Left-sided weakness and dysarthria
History of Present Illness
79-year-old male with past medical history of prostate cancer, hypertension, GERD, vitamin D deficiency now presenting for left-sided weakness and dysarthria. Patient woke at 6 AM usual health, although within 30 minutes noted left arm too weak and
dropped his glasses. Also states, felt dizzy. Further, significant other noted left-sided weakness at 8:15 AM along with difficult speaking Prompting 911 prompting hospital visit. Not on any anticoagulation or antiplatelet regimen. Does see
district attorney regularly, no history of atrial fibrillation. Patient had notable right-sided CVA, tPA given in the emergency room. Transferred to ICU for further monitoring. Of note also notable to have new onset atrial fibrillation, not
anticoagulation. Continues to have slurred speech although improved as per nurse. Given labetalol to control blood pressure and heart rate.
Medical History
Past Medical History
Past Medical History: Reports HTN and Other (Prostate cancer, HTN, vitamin D deficiency, GERD)
Past Surgical History: Reports None
Social History
Tobacco: Other (light smoker)
Alcohol: None
Drug: None
Personal: Partner
Living: With Family
Employment: Retired
Family History
Family History: Not pertinent
Allergies / Home Medications
Allergies reflects when Allergies were last updated in [facility].
Home Medications with original date entered in [facility]
Allergy/Medication List:
Allergies
Allergy/AdvReac Type Severity Reaction Status Date / Time
No Known Allergies Allergy Verified 02/02/25 09:01
Home Medications
cholecalciferol (vitamin D3) 50 mcg (2,000 unit) tablet 2,000 units PO DAILY Supplement 05/30/20
glucosamine sulfate dipotassium Cl 500 mg-chondroitin 400 mg capsule (Glucosamine Sulfate 2 KCL-Chondroitin) 1 cap PO DAILY Supplement 05/30/20
omega 4-jbk-jyv-fish oil 300 mg-1,000 mg capsule (Fish Oil) 1 cap PO DAILY Supplement 05/30/20
omeprazole 20 mg capsule,delayed release 40 mg PO DAILY Gastrointestinal issue 05/30/20
valsartan 80 mg tablet 160 mg PO DAILY Blood pressure 10/20/21
amlodipine 5 mg tablet 5 mg PO DAILY Blood Pressure 01/28/23
coenzyme Q10 100 mg capsule (CoQ-10) 400 mg PO DAILY Supplement 01/28/23
Boswellia john extract-turmeric root extract 500 mg capsule 1 cap PO DAILY Supplement 02/02/25
vitamin K2 100 mcg capsule 100 mcg PO DAILY Supplement 02/02/25
ascorbic acid 30 mg-collagen, hydrolyzed 833.3 mg tablet (Collagen Skin Renewal) 1 tab PO DAILY Supplement 03/24/25
famotidine 40 mg tablet (Pepcid) 40 mg PO DAILY Gastrointestinal Issue 03/24/25
fluticasone propionate 44 mcg/actuation HFA aerosol inhaler 1 puff inhalation R BIDPRN PRN sob 03/24/25
magnesium glycinate 100 mg (as glycinate) tablet 100 mg PO DAILY Supplement 03/24/25
testosterone 3 pump topical DAILY Hormonal Agent 03/24/25
vitamin A 2,400 mcg capsule 2,400 mcg PO DAILY Supplement 03/24/25
vitamin B complex 1 tab PO DAILY Supplement 03/24/25
Review of Systems
-
History Source: Patient
A 12 point ROS was completed and negative except as noted: Yes
Physical Exam
Vital Signs
Vital Signs
Temp Pulse Resp BP Pulse Ox
98 F 114 21 111/98 96
03/24/25 14:03 03/24/25 12:30 03/24/25 12:30 03/24/25 12:30 03/24/25 12:30
Physical Exam
General: Well Developed
HEENT: NormoCephalic
Respiratory: Clear
Cardiac: Irregular Rhythm
GI: Non Tender
Rectal: Brown
Musculoskeletal: No Clubbing
Skin: Warm
Neuro: AO x 3
Hematologic/Lymphatic: No Lymphadenopathy
Psych: Calm
Laboratory Results
-
03/24/25 08:44
03/24/25 08:44
Laboratory Results
PT 13.7 Sec (11.4-14.6) 03/24/25 08:44
INR 1.00 03/24/25 08:44
APTT 32.6 Sec (23.4-35.0) 03/24/25 08:44
Total Bilirubin 1.1 mg/dl (0.2-1.3) 03/24/25 08:44
AST 18 U/L (17-59) 03/24/25 08:44
ALT 14 U/L (0-50) 03/24/25 08:44
Alkaline Phosphatase 64 U/L (38-126) 03/24/25 08:44
Troponin I 0.021 ng/ml 03/24/25 08:44
Data Reviewed
-
Diagnostic Radiology: Report Reviewed by me
CT Scan: Report Reviewed by me
Lab Data: Labs Reviewed by me
Impression/Plan
-
IMPRESSION:
79-year-old male now presenting for acute right sided CVA status post tPA along with new onset atrial fibrillation.
PLAN:
#Acute CVA, right-sided
Likely cardioembolic
� tPA/AT
� tPA protocol
� Maintain neurochecks-neurology
� Maintain blood pressure
- Maintain euvolemia using 0.9% NaCl.
� MRI brain without rocío
� MRA head and neck
TTE
� TCH with reflex free T4
-Strictly follow I�s & O�s.
-Avoid antihypertensive medications unless MAP is persistently higher than 130
-Treat persistently elevated MAP>130 with IV Labetalol.
- Speech eval, bedside swallow
- -Maintain elevation of HOB 30-45 degrees.
- Utilize a pneumatic compression device for DVT prophylaxis.
-F/u Critical care/neuro recs
-hold anticoagulation until cleared by neurology
-If any changes, stat imaging and neuro/nsg consult
PT/OT
#New onset atrial fibrillation
# Mild tachycardic with normotensive
� Eventual start of anticoagulation once cleared by neurology
� TTE
� TSH with reflex to free T4
� Cardiology consulted
#DVT prophylaxis
� SCDs
[2025-03-24] MEDS: NSS 500 IV (14:56)
--- NOTE | 2025-03-24 15:55 | PTCARENOTE ---
Pt's significant other and friends visiting at bedside. Pt able to feed himself lunch w/ some difficulty due to ataxia but otherwise tolerated well. Echo in progress at bedside at this time. No new complaints. Neuro assessment as documented. Remains
on O2 at 2l/min w/ Pox 95-99%
[2025-03-24] MEDS: NSS 1000 IV (16:00)
[2025-03-24 16:08] LABS: TSH Reflex To Free T4 1.61 uIU/ml (0.47-4.68)
[2025-03-24] MEDS: PACERONE 200 MG PO ×2 (17:16→21:49)
--- NOTE | 2025-03-24 18:00 | PTCARENOTE ---
Pt continues to rest quietly, no longer restless. Watching TV. Significant other gone home for evening. Now in NSR on monitor, EKG obtained as ordered and on chart. Pox 99% on 2l/min- removed O2 and placed on RA w/ POx 95%. Neuro assessment as
documented. Reports improvement in 'numbness' to Lt UE. Speech remains slurred but easily understandable. No new complaints.
--- NOTE | 2025-03-24 18:35 | PTCARENOTE ---
Pt's POx noted to be 81% w/ good pleth on monitor. On entering room, pt found to be asleep. Easily arousable to name. Reports that he 'just had a sleep study this weekend'. O2 applied at 2l/min O2 w/ Pox 99%.
[2025-03-24] MEDS: NSS 250 IV (19:24)
--- NOTE | 2025-03-24 19:44 | PTCARENOTE ---
Received patient AAOx4, following commands, denying pain. NIHSS done with previous RN at bedside, see flowsheets. Slight left facial droop and dysarthria present, weakness on the left side. PERRLA 3 mm. Normal sinus 60s-70s with PVCs, BP
110s-130s/50s-60s. Normothermic. 250 ml NSS bolus given. Palpable pulses, no edema. On 2 liters nasal cannula, lung sounds diminished at the bases. Condom cath on draining yellow urine. Skin intact. PIVs patent, WNL. Hourly rounding and patient
safety checks ongoing. Call carter within reach.
[2025-03-25] VITALS (28 sets, daily range): BP systolic 89–148; BP diastolic 37–94; PULSE 70; O2SAT 99; BMI 29.0
[2025-03-25] MEDS: NSS 1000 IV (00:44)
--- NOTE | 2025-03-25 01:19 | PTCARENOTE ---
Patient assessment unchanged from previous, resting comfortably. Call carter within reach.
[2025-03-25 04:15] LABS: Hematocrit 30.5 % (39.0-52.0); Hemoglobin 10.3 g/dL (13.0-18.0); Mean Corp Hgb Conc. 33.8 g/dL (33.0-37.0); Mean Corpuscular Hgb 29.9 pg (27.0-31.0); Mean Corpuscular Volume 88.7 fL (80.0-94.0); Mean Platelet Volume 8.8 fL (7.4-10.4); Platelet Count 168 10^3/uL (130-400); Red Blood Cell Count 3.44 10^6/uL (4.70-6.10); Red Cell Dist. Width 14.2 % (11.5-14.5); White Blood Cell Count 8.5 10^3/uL (4.8-10.8)
[2025-03-25 04:20] LABS: INR 1.12; PT 14.9 Sec (11.4-14.6)
[2025-03-25 04:21] LABS: APTT 34.4 Sec (23.4-35.0)
[2025-03-25 04:37] LABS: Blood Urea Nitrogen 13 mg/dl (9-20); Calcium 8.2 mg/dl (8.4-10.2); Carbon Dioxide 26 mmol/L (22-30); Chloride 109 mmol/L (98-107); Estimated Creatinine Clearance 80 ml/min; Glucose 116 mg/dl (70-99); HDL Cholesterol 39 mg/dl; LDL Cholesterol, Calculated 51 mg/dl; Potassium 3.9 mmol/L (3.5-5.1); Sodium 138 mmol/L (135-145); Total Cholesterol 108 mg/dl (50-199); Triglyceride 94 mg/dl (10-149); Very Low Density Lipoprotein 18 mg/dl (0-30); eGFR > 60.00
--- NOTE | 2025-03-25 04:39 | PTCARENOTE ---
Patient assessment unchanged from previous, call carter within reach. Labs sent.
[2025-03-25] MEDS: PROTONIX 40 MG PO (07:47)
[2025-03-25] MEDS: PACERONE 200 MG PO ×3 (07:48→22:48)
[2025-03-25] MEDS: PEPCID 40 MG PO (07:48)
--- NOTE | 2025-03-25 07:49 | W.PN.NEURO.1 ---
Today's Communication / Plan
-
.
Subjective/Objective
Subjective Data
Date of Service: March 25, 2025
Neurology follow-up note.
Mr. Randall reports new resolution of his left sided weakness. He continues to have dysarthria denies headache, change in the vision or sensation.
Brain MRI wo rocío(03/25/2025) Small focus of acute infarct involving the right mcdowell radiata white matter at the posterior margin of the right lateral ventricle extending towards the precentral gyrus. Few small cortical infarcts involving the
posterior right insular cortex and frontal operculum. Subtle edema.
CTA head/neck-no thrombus or occlusion in the right middle cerebral artery M1 or M2 segments. The right MCA M3 segment demonstrates attenuation of intraluminal contrast, with contrast opacification in the more distal segments, suggesting M3 segment
nonocclusive thrombus.
LDL 54.
TTE-interatrial septum is intact with no evidence of shunting by color flow Doppler.
PMH: Prostate cancer, HTN, vitamin D deficiency, GERD
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
FH: Not contributory
All:NKDA
ROS: Positive for dysarthria
Exam
General: Well developed. In no acute distress.
Cardio: Regular rate and rhythm without murmur. Extremities are without cyanosis or edema.
Neuro:
Mental Status: Alert, oriented to person, place, and date. Normal attention and recall. Good fund of knowledge. Follows complex requests across the midline. Comprehension, naming, and repetition intact. No hemineglect
Cranial Nerves: Pupils are equally round and reactive to light. EOMs full. Visual sunshine full to confrontation. No ptosis. No nystagmus. V1-V3 intact to light touch and pinprick bilaterally, symmetric. Face symmetric. Impaired hearing AU.
The palate elevated well. SCMs and traps 5/5. Tongue midline. No dysarthria.
Motor: Normal fine finger movements bilaterally. Normal bulk and tone. No pronator or arm drift. Strength 5/5 throughout except for left triceps 5-5. No clonus.
Sensory: No extinction to DSS
Coordination: No dysmetria or tremor.
Gait: deferred
Assessment and Plan:
I. Acute right MCA territory stroke, status post TNK. Etiology�cardioembolic.
II. New onset of A-fib
III. Vascular encephalopathy
-Continue Telemetry monitoring
-Avoid cerebral hypoperfusion
-Aspiration precaution
-Start ASA 81 mg QD
-LDL level-at goal
-PT
-DVT prophylaxis.
-Outpatient neurology follow-up.
-Please recall neurology services any questions or concerns
I personally reviewed all radiology and labs along with past medical records pertinent to current medical problems. Total time spent in patient care is 36 minutes.
Thank you for allowing us to participate in the care of this patient. We will continue to follow. Please do not hesitate to contact us with any questions or concerns.
Objective Data
Vital Signs
Temp Pulse Resp BP Pulse Ox
36.6 C 55 18 113/48 93
03/25/25 07:04 03/25/25 05:45 03/25/25 05:45 03/25/25 05:30 03/25/25 05:45
Lab Results
03/25/25 03:49
03/25/25 03:49
PT 14.9 Sec (11.4-14.6) H 03/25/25 03:49
INR 1.12 03/25/25 03:49
APTT 34.4 Sec (23.4-35.0) 03/25/25 03:49
Sodium 138 mmol/L (135-145) 03/25/25 03:49
Potassium 3.9 mmol/L (3.5-5.1) 03/25/25 03:49
BUN 13 mg/dl (9-20) 03/25/25 03:49
Glucose 116 mg/dl (70-99) H 03/25/25 03:49
Calcium 8.2 mg/dl (8.4-10.2) L 03/25/25 03:49
LDL Cholesterol, Calc 51 mg/dl 03/25/25 03:49
Patient Allergies
No Known Allergies Allergy (Verified 02/02/25 09:01)
Vital Signs and Labs
-
Vital Signs and Labs:
Vital Signs
Temp Pulse Resp BP Pulse Ox
36.9 C 63 22 137/73 96
03/25/25 11:12 03/25/25 13:15 03/25/25 13:15 03/25/25 12:52 03/25/25 08:45
Lab Results
03/25/25 03:49
03/25/25 03:49
PT 14.9 Sec (11.4-14.6) H 03/25/25 03:49
INR 1.12 03/25/25 03:49
APTT 34.4 Sec (23.4-35.0) 03/25/25 03:49
Sodium 138 mmol/L (135-145) 03/25/25 03:49
Potassium 3.9 mmol/L (3.5-5.1) 03/25/25 03:49
BUN 13 mg/dl (9-20) 03/25/25 03:49
Glucose 116 mg/dl (70-99) H 03/25/25 03:49
Calcium 8.2 mg/dl (8.4-10.2) L 03/25/25 03:49
LDL Cholesterol, Calc 51 mg/dl 03/25/25 03:49
Medications
-
Medications:
Generic Name Dose Route Start Last Admin
Trade Name Freq PRN Reason Stop Dose Admin
Acetaminophen 650 mg 03/24/25 08:57
Acetaminophen 325 Mg Tablet PO 04/21/25 08:56
Q4HPRN PRN
FALCON, mild pain, or temp >100.4F
Amiodarone HCl 200 mg 03/24/25 22:00 03/25/25 07:48
Amiodarone 200 Mg Tablet PO 04/21/25 21:59 200 mg
TID JAYE Administration
Atorvastatin Calcium 10 mg 03/25/25 18:00
Atorvastatin (Lipitor) 10 Mg Tablet PO 04/22/25 17:59
QPM JAYE
Famotidine 40 mg 03/25/25 08:00 03/25/25 07:48
Famotidine 40 Mg Tablet PO 04/22/25 07:59 40 mg
DAILY JAYE Administration
Fluticasone Propionate 1 puff 03/24/25 10:23
Fluticasone 44 Mcg Inhaler INH 04/21/25 10:22
R BIDPRN PRN
sob
Protocol
Pantoprazole Sodium 40 mg 03/25/25 08:00 03/25/25 07:47
Pantoprazole 40 Mg Delayed Release Tablet PO 04/22/25 07:59 40 mg
DAILY JAYE Administration
Sodium Chloride 0 flush 03/24/25 11:00
Sodium Chloride 0.9% (Flush) Syringe IV 04/21/25 10:59
PER PROTOCOL JAYE
Home Medications
-
Home Medications
cholecalciferol (vitamin D3) 50 mcg (2,000 unit) tablet 2,000 units PO DAILY Supplement 05/30/20
glucosamine sulfate dipotassium Cl 500 mg-chondroitin 400 mg capsule (Glucosamine Sulfate 2 KCL-Chondroitin) 1 cap PO DAILY Supplement 05/30/20
omega 2-vga-dsb-fish oil 300 mg-1,000 mg capsule (Fish Oil) 1 cap PO DAILY Supplement 05/30/20
omeprazole 20 mg capsule,delayed release 40 mg PO DAILY Gastrointestinal issue 05/30/20
valsartan 80 mg tablet 160 mg PO DAILY Blood pressure 10/20/21
amlodipine 5 mg tablet 5 mg PO DAILY Blood Pressure 01/28/23
coenzyme Q10 100 mg capsule (CoQ-10) 400 mg PO DAILY Supplement 01/28/23
Boswellia john extract-turmeric root extract 500 mg capsule 1 cap PO DAILY Supplement 02/02/25
vitamin K2 100 mcg capsule 100 mcg PO DAILY Supplement 02/02/25
ascorbic acid 30 mg-collagen, hydrolyzed 833.3 mg tablet (Collagen Skin Renewal) 1 tab PO DAILY Supplement 03/24/25
famotidine 40 mg tablet (Pepcid) 40 mg PO DAILY Gastrointestinal Issue 03/24/25
fluticasone propionate 44 mcg/actuation HFA aerosol inhaler 1 puff inhalation R BIDPRN PRN sob 03/24/25
magnesium glycinate 100 mg (as glycinate) tablet 100 mg PO DAILY Supplement 03/24/25
testosterone 3 pump topical DAILY Hormonal Agent 03/24/25
vitamin A 2,400 mcg capsule 2,400 mcg PO DAILY Supplement 03/24/25
vitamin B complex 1 tab PO DAILY Supplement 03/24/25
--- NOTE | 2025-03-25 07:54 | PTCARENOTE ---
recd [id number] handoff with previous RN. in good spirits. reviewed plans for the day. ordered and awaiting breakfast. mild neuro symptoms.
--- NOTE | 2025-03-25 08:50 | PTCARENOTE ---
transport via bed to MRI.
--- NOTE | 2025-03-25 09:56 | W.PN.CARDCBS ---
Today's Communication / Plan
-
Remains in sinus rhythm. Continue amiodarone load.
Eventual Eliquis when okay with neurology
Would add metoprolol 25 mg p.o. daily over next 24 hours when timeframe for permissive hypertension has stopped.
Continue medical therapy for presumed coronary artery disease. Would add atorvastatin 10 mg daily.
Impression / Plan
-
PCP: Dr. Brooks
Card: Dr. Leach
Impression:
Admitted with acute CVA 03/24/25
Acute right MCA territory CVA, treated with TNK 03/24/25
Newly diagnosed Afib of unclear duration
spontaneously converted to SR during echo 03/24/25
Preserved EF with stable WMA including basal inferior, inferoseptal and inferolateral wall hypokinesis by echo 11/08/2023 and again 03/24/2025
HTN
Echo 11/08/2023: EF 50 to 55%, hypokinesis of the basal inferior, inferoseptal and inferolateral luns[place], stage I diastolic dysfunction, normal RV size and function, trace MR, no AAS or AI, no clear mobile echodensity on the noncoronary cusp (this was
described in a 3 chamber view on prior echo 09/04/2023)
Echo 03/24/2025: EF 50%, inferior inferolateral hypokinesis, mild MR, aortic sclerosis
Plan:
-Remains in sinus rhythm. Continue amiodarone load 200 mg p.o. 3 times daily.
-Recommend start Eliquis when okay with neurology
-Clinically has improved status post TNK 03/23/25
-Continue atorvastatin, LDL 51, HDL 39
-Echo with EF 50% with inferior hypokinesis.
Patient also has a history of abnormal stress test and also evidence of WMA on echo. Last stress test was an exercise nuclear stress test 08/28/2023, completed 6 minutes Mark protocol for 7 METS of activity and 97% of MPHR with positive ECG
including [address] depression in leads II, III and aVF, but perfusion imaging showed only a small area of moderately decreased perfusion of his predominantly fixed in the basal inferior segment, mid inferolateral segment, mid inferior segment, apex,
apical inferior segment consistent with infarction that partially improves with prone imaging. The patient elected for medical management although could not exclude some element of CAD.
Progress Note - Business Continuity Planner
Subjective
Date of Service: March 25, 2025
Remains in sinus rhythm. Still with some speech deficits. No palpitations or chest pains
Objective
Labs:
03/25/25 03:49
03/25/25 03:49
Labs
Hgb 10.3 g/dL (13.0-18.0) L D 03/25/25 03:49
Hct 30.5 % (39.0-52.0) L 03/25/25 03:49
Plt Count 168 10^3/uL (130-400) 03/25/25 03:49
PT 14.9 Sec (11.4-14.6) H 03/25/25 03:49
INR 1.12 03/25/25 03:49
APTT 34.4 Sec (23.4-35.0) 03/25/25 03:49
Sodium 138 mmol/L (135-145) 03/25/25 03:49
Potassium 3.9 mmol/L (3.5-5.1) 03/25/25 03:49
BUN 13 mg/dl (9-20) 03/25/25 03:49
Creatinine 0.7 mg/dL (0.7-1.3) 03/25/25 03:49
Glucose 116 mg/dl (70-99) H 03/25/25 03:49
Troponins
03/24/25
08:44
Troponin I 0.021
Vital Signs and I&O:
Vital Signs
Temp Pulse Resp BP Pulse Ox
97.9 F 70 24 135/74 96
03/25/25 07:04 03/25/25 08:45 03/25/25 08:45 03/25/25 08:45 03/25/25 08:45
Vital Signs
Temp Pulse Resp BP Pulse Ox
97.9 F 70 24 135/74 96
03/25/25 07:04 03/25/25 08:45 03/25/25 08:45 03/25/25 08:45 03/25/25 08:45
Intake & Output
03/23/25 03/24/25 03/25/25 03/26/25
06:59 06:59 06:59 06:59
Intake Total 3095 / 3195 440 / 440
Output Total 3375 / 3375 350 / 350
Balance -280 / -180 90 / 90
Physical Exam
Physical Exam
GEN: No distress, awake, Ox3
HEENT: supple, anicteric, mmm
LUNGS: CTA, no wheezes/rales
CV: Reg, S1/S2, 1/6 syst LSB, no gallop
ABD: soft, BS+, NT/ND
EXT: No edema
NEURO: + mild slurred speech
SKIN: No rash
--- NOTE | 2025-03-25 11:50 | W.PN.INTV ---
Today's Communication / Plan
Recommendations
Continue with cardiac management
Antiplatelets per neurology
Continue statins
Physical therapy/Occupational Therapy
Eventual ischemic workup
Transfer to telemetry
Sign off
Assessment
-
79-year-old man with past medical history noted, admitted to the hospital with left-sided weakness. Found to have right MCA territory stroke. Status post tenecteplase. Also found to have new onset atrial fibrillation. Transferred to the critical
care unit for monitoring per protocol.
Acute right M3 territory stroke. Etiology�cardioembolic.- Status post tenecteplase 03/24/2025
CT/P head-hypoperfusion in the right MCA territory with a central ischemic core of 0 mL, total volume of hypoperfusion of 84 mL, and a penumbra of 84 mL. The mismatch ratio is infinite.head wo contrast
CTA head/neck-no thrombus or occlusion in the right middle cerebral artery M1 or M2 segments. The right MCA M3 segment demonstrates attenuation of intraluminal contrast, with contrast opacification in the more distal segments, suggesting M3
segment nonocclusive thrombus.
New onset atrial fibrillation.
Conditions present prior admission:
Prostate cancer
Hypertension
Vitamin D deficiency
GERD
-
Assessment and plan:
-
Clinically improved post tenecteplase.
No evidence of bleeding
Left-sided weakness improved
Continues to have slurred speech-somewhat improved
-
MRI 03/25/2025:
Small focus of acute infarct involving the right mcdowell radiata white matter at the posterior margin of the right lateral ventricle extending towards the precentral gyrus. Few small cortical infarcts involving the posterior right insular cortex and
frontal operculum. Subtle edema. No mass effect or hemorrhage.
-
New onset atrial fibrillation: Normotensive. Improved heart rate.
Eventual start anticoagulation.
Amiodarone-rate improved.
Echocardiogram 03/24/2025: Left ventricle size is small. Mild LVH. Mild reduced left ventricular systolic function. Moderate hypokinesis of the basal inferior septal, inferior and inferolateral lunsford. Ejection fraction 50%. Stage II diastolic
dysfunction. Enlarge right ventricular size. Normal right ventricular systolic function. No significant valvular normalities.
Eventual ischemic workup based on echocardiogram.
-
Defer antiplatelet and anticoagulants to neurology.
-
Physical therapy/Occupational Therapy
-
Simple snoring: Negative home sleep study 03/19/2025.
-
Transfer to telemetry.
Critical care team will sign
Subjective Dataa
Subjective Data
Date of Service:
Date of Service: March 25, 2025
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
Subjective:
Patient offers no new complaints
Left-sided weakness significantly improved
Speech not back to baseline.
Review of Systems
Cardiopulmonary: Dyspnea (n)
GI: Abdominal Pain (n) and Nausea (n)
Objective Data
Data Reviewed
Vital Signs / I&O / Oxygen:
Vital Signs
Temp Pulse Resp BP Pulse Ox
98.4 F 70 24 135/74 96
03/25/25 11:12 03/25/25 08:45 03/25/25 08:45 03/25/25 08:45 03/25/25 08:45
Intake and Output
03/24/25 03/25/25 03/26/25
06:59 06:59 06:59
Intake Total 3095 / 3195 660 / 660
Output Total 3375 / 3375 850 / 850
Balance -280 / -180 -190 / -190
SaO2 96
Nasal Cannula flow liters per 2
minute
Physical Exam
General: Comfortable
HEENT: Normocephalic
Cardiovascular: Irregular Rhythm
Respiratory: Non-Labored Respirations
GI: Soft and Non Distended
Neurology: Awake and AO x 3
Skin: Warm
Labs/Micro/Reports
Lab Data
03/25/25 03:49
03/25/25 03:49
Laboratory Results
03/25/25
03:49
PT 14.9 H
INR 1.12
APTT 34.4
--- NOTE | 2025-03-25 14:06 | CM ---
Patient transferred to Room 409-1.
--- NOTE | 2025-03-25 15:42 | W.PN.HOSP.TC ---
Addendum entered and electronically signed by Alonso Delgado MD 03/25/25 15:58:
Okay to start Eliquis in 7 days. Continue aspirin 81 for now. Okay to start antihypertensives, metoprolol within 24 hours as per neurology.
Original Note:
Today's Communication/Plan
-
Amiodarone
Aspirin
Start Eliquis, metoprolol once cleared by neurology
Statin
Downgrade
Assessment / Plan
Assessment / Plan
Physical Exam
General: Comfortable
HEENT: Normocephalic
Cardiovascular: Irregular Rhythm
Respiratory: Non-Labored Respirations
GI: Soft and Non Distended
Neurology: Awake and AO x 3
Skin: Warm
79-year-old male now presenting for acute right sided CVA status post tPA along with new onset atrial fibrillation.
PLAN:
#Acute CVA, right-sided
Likely cardioembolic
� tPA/AT
� tPA protocol
� Maintain neurochecks-neurology
� Advance diet as tolerated
� Anticoagulation, aspirin as per neurology, cardiology
� LDL level at goal
� PT/OT
� Echo with hypokinesis noted inferior inferior lateral hypokinesis lunsford
�Statin added
#New onset atrial fibrillation
�Reverted back to sinus rhythm 6�18
� Continue amiodarone load
� Eventual Eliquis when okay with neurology
� Add Toprol 25 mg daily over the next 24 hours when cleared by neurology
� Add statin
� Eventual start of anticoagulation once cleared by neurology
� TSH 1.61
� Cardiology consulted
#Essental Hypertension
-add back once cleared by neuro
-stop amlodipine
-add back BB
#DVT prophylaxis
� SCDs, add anticoag once cleared by neurology
Anticipated Discharge: 24 - 48 hours
Subjective/Interval History
-
Date of Service: March 25, 2025
Reverted back to sinus rhythm, dysarthria improved
Objective Data
-
Labs:
Laboratory Results
03/25/25
03:49
WBC 8.5
Hgb 10.3 L D
Hct 30.5 L
Plt Count 168
PT 14.9 H
INR 1.12
APTT 34.4
Sodium 138
Potassium 3.9
Chloride 109 H
Carbon Dioxide 26
BUN 13
Creatinine 0.7
Glucose 116 H
Calcium 8.2 L
Vital Signs:
Vital Signs
Temp Pulse Resp BP Pulse Ox
98.1 F 65 18 137/69 97
03/25/25 14:18 03/25/25 14:18 03/25/25 14:18 03/25/25 14:18 03/25/25 14:18
I&O
03/24/25 03/25/25 03/26/25
06:59 06:59 06:59
Intake Total 3095 / 3195 900 / 900
Output Total 3375 / 3375 850 / 850
Balance -280 / -180 50 / 50
Review of Systems
-
History Source: Patient
All other systems: Not reviewed unless documented
Data Reviewed
-
CT Scan: Report Reviewed by me
MRI: Report Reviewed by me
Labs: Labs Reviewed by me
[2025-03-25] MEDS: LOW STRENGTH ASPIRIN 81 MG PO (16:32)
[2025-03-25] MEDS: LIPITOR 10 MG PO (16:32)
[2025-03-25 21:30] LABS: Glucose - Point of Care 143 mg/dl (70-99)
[2025-03-26] VITALS (8 sets, daily range): BP systolic 99–154; BP diastolic 58–80; PULSE 65–66; O2SAT 97
[2025-03-26 08:08] LABS: Hematocrit 33.4 % (39.0-52.0); Hemoglobin 11.2 g/dL (13.0-18.0); Mean Corp Hgb Conc. 33.5 g/dL (33.0-37.0); Mean Corpuscular Volume 89.5 fL (80.0-94.0); Mean Platelet Volume 8.7 fL (7.4-10.4); Platelet Count 174 10^3/uL (130-400); Red Blood Cell Count 3.73 10^6/uL (4.70-6.10); Red Cell Dist. Width 14.1 % (11.5-14.5); White Blood Cell Count 8.5 10^3/uL (4.8-10.8)
[2025-03-26 08:34] LABS: Blood Urea Nitrogen 13 mg/dl (9-20); Calcium 9.2 mg/dl (8.4-10.2); Carbon Dioxide 31 mmol/L (22-30); Chloride 106 mmol/L (98-107); Estimated Creatinine Clearance 70 ml/min; Glucose 129 mg/dl (70-99); Potassium 3.9 mmol/L (3.5-5.1); Sodium 141 mmol/L (135-145); eGFR > 60.00
[2025-03-26] MEDS: LOW STRENGTH ASPIRIN 81 MG PO (08:47)
[2025-03-26] MEDS: PROTONIX 40 MG PO (08:47)
[2025-03-26] MEDS: PACERONE 200 MG PO ×2 (08:47→21:13)
[2025-03-26] MEDS: PEPCID 40 MG PO (08:47)
--- NOTE | 2025-03-26 10:53 | W.PN.CARDCBS ---
Addendum entered and electronically signed by Jeromy Leach MD 03/26/25 11:37:
I saw and examined the patient.
The [employer] FARMWORKER or PA's note was reviewed and I agree with the note.
Comment: General: Well developed, well nourished in NAD.
Neck: Supple, no JVD, HJR, carotids +2 B/L, no bruits bilaterally.
Heart: Non displaced PMI, RRR, no murmurs, No S3, S4, no rubs.
Lungs: Clear to auscultation bilaterally, no wheeze, rhonchi, rubs bilaterally,
normal expiratory phase.
Extremities: No clubbing, cyanosis or edema bilaterally.
Neuro: Grossly nonfocal, awake, alert and oriented x3.
Remains in sinus rhythm. Stable cardiology status for discharge. Will decrease amiodarone to 200 mg p.o. twice daily. Start Eliquis as outpatient in 6 days. Discussed with primary service, neurology and follow-up has been arranged. Will sign off
Original Note:
Today's Communication / Plan
-
-ok for discharge from cardiac standpoint
-will reduce Amio to 200 mg bid
-start Eliquis in 7 days
Impression / Plan
-
PCP: Dr. Brooks
Card: Dr. Leach
Impression:
Admitted with acute CVA 03/24/25
Acute right MCA territory CVA, treated with TNK 03/24/25
Newly diagnosed Afib of unclear duration
spontaneously converted to SR during echo 03/24/25
Preserved EF with stable WMA including basal inferior, inferoseptal and inferolateral wall hypokinesis by echo 11/08/2023 and again 03/24/2025
HTN
Echo 11/08/2023: EF 50 to 55%, hypokinesis of the basal inferior, inferoseptal and inferolateral luns[place], stage I diastolic dysfunction, normal RV size and function, trace MR, no AAS or AI, no clear mobile echodensity on the noncoronary cusp (this was
described in a 3 chamber view on prior echo 09/04/2023)
Echo 03/24/2025: EF 50%, inferior inferolateral hypokinesis, mild MR, aortic sclerosis
Plan:
-Clinically has improved status post TNK 03/23/25
-per neurology okay to start Eliquis in 7 days. Continue aspirin for now.
-Remains in sinus rhythm. Will reduce amiodarone to 200 mg p.o. 2 times daily. Further downtitrate Amio at cardiology f/u appt, [facility] for 04/20/2025.
-start Toprol 25 mg daily
-Continue atorvastatin, LDL 51, HDL 39
cardiology f/u [facility] for 04/20/2025
-Echo with EF 50% with inferior hypokinesis.
Patient also has a history of abnormal stress test and also evidence of WMA on echo. Last stress test was an exercise nuclear stress test 08/28/2023, completed 6 minutes Mark protocol for 7 METS of activity and 97% of MPHR with positive ECG
including [address] depression in leads II, III and aVF, but perfusion imaging showed only a small area of moderately decreased perfusion of his predominantly fixed in the basal inferior segment, mid inferolateral segment, mid inferior segment, apex,
apical inferior segment consistent with infarction that partially improves with prone imaging. The patient elected for medical management although could not exclude some element of CAD.
Progress Note - Dermatology Nurse
Subjective
Date of Service: March 26, 2025
feels well
maintaining sinus rhythm
Objective
Labs:
03/26/25 07:35
03/26/25 07:35
Labs
Hgb 11.2 g/dL (13.0-18.0) L 03/26/25 07:35
Hct 33.4 % (39.0-52.0) L 03/26/25 07:35
Plt Count 174 10^3/uL (130-400) 03/26/25 07:35
PT 14.9 Sec (11.4-14.6) H 03/25/25 03:49
INR 1.12 03/25/25 03:49
APTT 34.4 Sec (23.4-35.0) 03/25/25 03:49
Sodium 141 mmol/L (135-145) 03/26/25 07:35
Potassium 3.9 mmol/L (3.5-5.1) 03/26/25 07:35
BUN 13 mg/dl (9-20) 03/26/25 07:35
Creatinine 0.8 mg/dL (0.7-1.3) 03/26/25 07:35
Glucose 129 mg/dl (70-99) H 03/26/25 07:35
Troponins
03/24/25
08:44
Troponin I 0.021
Vital Signs and I&O:
Vital Signs
Temp Pulse Resp BP Pulse Ox
97.7 F 84 16 129/80 96
03/26/25 08:28 03/26/25 08:47 03/26/25 08:28 03/26/25 08:47 03/26/25 08:28
Vital Signs
Temp Pulse Resp BP Pulse Ox
97.7 F 84 16 129/80 96
03/26/25 08:28 03/26/25 08:47 03/26/25 08:28 03/26/25 08:47 03/26/25 08:28
Intake & Output
03/24/25 03/25/25 03/26/25 03/27/25
06:59 06:59 06:59 06:59
Intake Total 3095 / 3195 1380 / 1380
Output Total 3375 / 3375 850 / 850
Balance -280 / -180 530 / 530
Physical Exam
Physical Exam
GEN: No distress, awake, Ox3
HEENT: supple, anicteric, mmm
LUNGS: CTA, no wheezes/rales
CV: Reg, S1/S2, no murmur
ABD: soft, BS+, NT/ND
EXT: No edema
NEURO: Gross non-focal
SKIN: No rash
--- NOTE | 2025-03-26 12:26 | W.PN.HOSP.TC ---
Addendum entered and electronically signed by Alonso Delgado MD 03/26/25 14:54:
[id number]
Original Note:
Today's Communication/Plan
-
Toprol 25mg daily
Amiodarone 200mg BID
Eliquis start 7 days from 03/25/25
ASA
Statin
F/u Neuro, Cards, PCP outpt
Assessment / Plan
Assessment / Plan
Physical Exam
General: Comfortable
HEENT: Normocephalic
Cardiovascular: regular Rhythm
Respiratory: Non-Labored Respirations
GI: Soft and Non Distended
Neurology: Awake and AO x 3
Skin: Warm
79-year-old male now presenting for acute right sided CVA status post tPA along with new onset atrial fibrillation.
PLAN:
#Acute CVA, right-sided
Likely cardioembolic
� s/p tPA/AT 03/24
� tPA protocol
� Maintain neurochecks-neurology
� Advance diet as tolerated
� Anticoagulation, aspirin as per neurology, cardiology
� LDL level at goal
� PT/OT
� Echo with hypokinesis noted inferior inferior lateral hypokinesis lunsford - should follow up cards outpatient
�Statin added
#New onset atrial fibrillation
�Reverted back to sinus rhythm 6�18
� Continue amiodarone
� Eventual Eliquis - 7 days from 03/25 - start 04/01
� Add Toprol 25 mg daily- cleared by Neurology
� Add statin
� TSH 1.61
� Cardiology consulted - f/u outpatient
#Essental Hypertension
-stop amlodipine
-add BB
-Hold ARB - restart as per BP - outpatient
#DVT prophylaxis
� SCDs
More than 30 minutes spent in discharge including
Final examination of the patient
Summarizing hospital stay
Instructions for continuing care to all relevant caregivers
Preparation of discharge records, prescriptions, and referral forms
Total time spent (in minutes): 37
Anticipated Discharge: Today
Subjective/Interval History
-
Date of Service: March 26, 2025
no acute events, speech appears to have improved
Objective Data
-
Labs:
Laboratory Results
03/26/25
07:35
WBC 8.5
Hgb 11.2 L
Hct 33.4 L
Plt Count 174
Sodium 141
Potassium 3.9
Chloride 106
Carbon Dioxide 31 H
BUN 13
Creatinine 0.8
Glucose 129 H
Calcium 9.2
Vital Signs:
Vital Signs
Temp Pulse Resp BP Pulse Ox
97.7 F 84 16 129/80 96
03/26/25 08:28 03/26/25 08:47 03/26/25 08:28 03/26/25 08:47 03/26/25 08:28
I&O
03/25/25 03/26/25 03/27/25
06:59 06:59 06:59
Intake Total 3095 / 3195 1380 / 1380
Output Total 3375 / 3375 850 / 850
Balance -280 / -180 530 / 530
Review of Systems
-
History Source: Patient
All other systems: Not reviewed unless documented
Data Reviewed
-
CT Scan: Report Reviewed by me
MRI: Report Reviewed by me
Labs: Labs Reviewed by me
--- NOTE | 2025-03-26 12:39 | W.DS.TRANS ---
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
-
Discharge Instructions:
Discharge Diagnosis/Procedures Acute right MCA territory CVA, treated with TNK
03/24/25
Newly diagnosed Afib of unclear duration
spontaneously converted to SR during echo
25
Diet Low Cholesterol,Low Fat
Activity As tolerated
Blood Work cbc and bmp in 5-7 days with pcp
Instructions:
Stand-Alone Forms:
Changes to Home Medications: Yes
Discharge Medications:
DC Medications w/original date entered in [facility]
cholecalciferol (vitamin D3) 50 mcg (2,000 unit) tablet 2,000 units PO DAILY Supplement 05/30/20
glucosamine sulfate dipotassium Cl 500 mg-chondroitin 400 mg capsule (Glucosamine Sulfate 2 KCL-Chondroitin) 1 cap PO DAILY Supplement 05/30/20
omega 7-qjf-fzw-fish oil 300 mg-1,000 mg capsule (Fish Oil) 1 cap PO DAILY Supplement 05/30/20
omeprazole 20 mg capsule,delayed release 40 mg PO DAILY Gastrointestinal issue 05/30/20
valsartan 80 mg tablet 160 mg PO DAILY Blood pressure 10/20/21
Held on 03/26/25. Instructions: Resume on 04/01/25. until cleared by pcp after addition of metoprolol
coenzyme Q10 100 mg capsule (CoQ-10) 400 mg PO DAILY Supplement 01/28/23
Boswellia john extract-turmeric root extract 500 mg capsule 1 cap PO DAILY Supplement 02/02/25
vitamin K2 100 mcg capsule 100 mcg PO DAILY Supplement 02/02/25
ascorbic acid 30 mg-collagen, hydrolyzed 833.3 mg tablet (Collagen Skin Renewal) 1 tab PO DAILY Supplement 03/24/25
famotidine 40 mg tablet (Pepcid) 40 mg PO DAILY Gastrointestinal Issue 03/24/25
fluticasone propionate 44 mcg/actuation HFA aerosol inhaler 1 puff inhalation R BIDPRN PRN sob 03/24/25
magnesium glycinate 100 mg (as glycinate) tablet 100 mg PO DAILY Supplement 03/24/25
testosterone 3 pump topical DAILY Hormonal Agent 03/24/25
Held on 03/26/25. Instructions: Resume on 04/01/25. hold until cleared by pcp
vitamin A 2,400 mcg capsule 2,400 mcg PO DAILY Supplement 03/24/25
vitamin B complex 1 tab PO DAILY Supplement 03/24/25
amiodarone 200 mg tablet 200 mg PO BID 30 days #60 tabs 03/26/25
apixaban 5 mg tablet (Eliquis) 5 mg PO BID 30 days #60 tabs 03/26/25
aspirin 81 mg chewable tablet 81 mg PO DAILY 30 days #30 tabs 03/26/25
atorvastatin 10 mg tablet 10 mg PO QPM 30 days #30 tabs 03/26/25
metoprolol succinate 25 mg tablet,extended release 24 hr 25 mg PO DAILY 30 days #30 tabs 03/26/25
Home Medication Changes
amiodarone 200 mg tablet 200 mg PO BID 30 days #60 tabs 03/26/25
apixaban 5 mg tablet (Eliquis) 5 mg PO BID 30 days #60 tabs 03/26/25
aspirin 81 mg chewable tablet 81 mg PO DAILY 30 days #30 tabs 03/26/25
atorvastatin 10 mg tablet 10 mg PO QPM 30 days #30 tabs 03/26/25
metoprolol succinate 25 mg tablet,extended release 24 hr 25 mg PO DAILY 30 days #30 tabs 03/26/25
Pending Results: No
[2025-03-26] MEDS: TOPROL XL 25 MG PO (13:23)
--- NOTE | 2025-03-26 14:49 | CM ---
Addendum entered by Rani Judge 03/26/25 16:23:
Bed available at [facility] Saturday once insurance auth received.
Addendum entered by Rani Judge 03/26/25 16:13:
Insurance authorization initiated with [facility]- pended reference # [id number]
clinicals faxed to [phone]
Addendum entered by Rani Judge 03/26/25 15:59:
[facility] NPI# [id number]
Dr Trevin Hoover NPI# [id number]
Addendum entered by Rani Judge 03/26/25 15:30:
PT/OT in to see patient recommending acute rehab, again spouse does not drive and does not want him to go that far.
TC to [facility] for skilled rehab, possible bed Saturday, clinicals via [facility]port.
Needs [employer] auth, awaiting NPIs.
Original Note:
Patient seen bedside with spouse.
PT recommending Acute Rehab, patient does not think he needs it.
[facility]. Spouse not interested in facilities further away, too far for her to go and she has appointments this week for a medical w/u. .
Suggested skilled rehab, both patient and spouse open to [facility], however [facility] does not accept patients insurance.
Other facilities reviewed with spouse and she said patient is stubborn and wants to go home.
Reviewed home care options and spouse agreeable to home with [facility].
TT to [facility] liaison.
MD updated.
Plan: home with [facility]
--- NOTE | 2025-03-26 16:09 | VNURNOTE ---
Rec'ed info that sig other was looking into [facility]. Met with pt and sig other at bedside. Explained services: short term, intermittent, skilled. Sig other anxious and very concerned that it would be too much for her to take care of pt at home. Sig
other recently diagnosed with liver CA. Emotional support provided. Sig other inquired about other facilities/skilled rehab that pt could go to short term instead of directly home. Patient seemed in agreement with going to a a skilled rehab. CM
Lisa pillai.
No [facility] referral placed, appears DC plan is now [facility].
[2025-03-26] MEDS: LIPITOR 10 MG PO (18:05)
[2025-03-27] VITALS (8 sets, daily range): BP systolic 114–142; BP diastolic 54–79; PULSE 70–101; O2SAT 97–98
[2025-03-27] MEDS: LOW STRENGTH ASPIRIN 81 MG PO (07:44)
[2025-03-27] MEDS: PEPCID 40 MG PO (07:44)
[2025-03-27] MEDS: PROTONIX 40 MG PO (07:44)
[2025-03-27] MEDS: PACERONE 200 MG PO ×2 (07:45→20:51)
[2025-03-27] MEDS: TOPROL XL 25 MG PO (07:46)
[2025-03-27 08:00] LABS: Hematocrit 35.7 % (39.0-52.0); Mean Corp Hgb Conc. 33.6 g/dL (33.0-37.0); Mean Corpuscular Hgb 29.5 pg (27.0-31.0); Mean Corpuscular Volume 87.7 fL (80.0-94.0); Mean Platelet Volume 8.7 fL (7.4-10.4); Platelet Count 199 10^3/uL (130-400); Red Blood Cell Count 4.07 10^6/uL (4.70-6.10)
[2025-03-27 09:00] LABS: Blood Urea Nitrogen 15 mg/dl (9-20); Calcium 9.2 mg/dl (8.4-10.2); Carbon Dioxide 27 mmol/L (22-30); Chloride 106 mmol/L (98-107); Estimated Creatinine Clearance 70 ml/min; Glucose 120 mg/dl (70-99); Potassium 3.9 mmol/L (3.5-5.1); Sodium 140 mmol/L (135-145); eGFR > 60.00
--- NOTE | 2025-03-27 11:56 | W.PN.HOSP.TC ---
Today's Communication/Plan
-
pending placement
ASA, statin
amio, BB
Assessment / Plan
Assessment / Plan
Physical Exam
General: Comfortable
HEENT: Normocephalic
Cardiovascular: regular Rhythm
Respiratory: Non-Labored Respirations
GI: Soft and Non Distended
Neurology: Awake and AO x 3
Skin: Warm
79-year-old male now presenting for acute right sided CVA status post tPA along with new onset atrial fibrillation.
PLAN:
#Acute CVA, right-sided
Likely cardioembolic
� s/p tPA/AT 03/24
� tPA protocol
� Maintain neurochecks
-neurology
� Advance diet as tolerated
� Anticoagulation, aspirin as per neurology, cardiology
� LDL level at goal
� PT/OT
� Echo with hypokinesis noted inferior inferior lateral hypokinesis [place] - should follow up cards outpatient
�Statin added
-ASA
#New onset atrial fibrillation
�Reverted back to sinus rhythm 6�18
� Continue amiodarone
� Eventual Eliquis - 7 days from 03/25 - start 04/01
� Add Toprol 25 mg daily- cleared by Neurology
� Add statin
� TSH 1.61
� Cardiology consulted - f/u outpatient
#Essential Hypertension
-stop amlodipine
-add BB
-Hold ARB - restart as per BP - outpatient
#DVT prophylaxis
� SCDs
# Testosterone use
� Spoke to neurology, holding testosterone indefinitely until cleared by neurology outpatient as may make patient hypercoagulable
DC ready - awaiting ARVIND placement
Anticipated Discharge: 24 - 48 hours
Subjective/Interval History
-
Date of Service: March 27, 2025
No acute events, DC held as patient will go to subacute rehab
Objective Data
-
Labs:
Laboratory Results
03/27/25
07:04
WBC 8.0
Hgb 12.0 L
Hct 35.7 L
Plt Count 199
Sodium 140
Potassium 3.9
Chloride 106
Carbon Dioxide 27
BUN 15
Creatinine 0.8
Glucose 120 H
Calcium 9.2
Vital Signs:
Vital Signs
Temp Pulse Resp BP Pulse Ox
98.2 F 59 18 114/65 97
03/27/25 11:20 03/27/25 11:20 03/27/25 11:20 03/27/25 11:20 03/27/25 11:20
I&O
03/26/25 03/27/25 03/28/25
06:59 06:59 06:59
Intake Total 1380 / 1380 1080 / 1080 240 / 240
Output Total 850 / 850 1100 / 1100
Balance 530 / 530 -20 / -20 240 / 240
Review of Systems
-
History Source: Patient
All other systems: Not reviewed unless documented
Data Reviewed
-
CT Scan: Report Reviewed by me
MRI: Report Reviewed by me
Labs: Labs Reviewed by me
[2025-03-27] MEDS: LIPITOR 10 MG PO (16:56)
[2025-03-28] VITALS (8 sets, daily range): BP systolic 117–146; BP diastolic 50–71; PULSE 56–64; O2SAT 98
[2025-03-28 07:01] LABS: Hematocrit 30.4 % (39.0-52.0); Hemoglobin 10.2 g/dL (13.0-18.0); Mean Corp Hgb Conc. 33.6 g/dL (33.0-37.0); Mean Corpuscular Hgb 29.7 pg (27.0-31.0); Mean Corpuscular Volume 88.6 fL (80.0-94.0); Mean Platelet Volume 8.8 fL (7.4-10.4); Platelet Count 177 10^3/uL (130-400); Red Blood Cell Count 3.43 10^6/uL (4.70-6.10); Red Cell Dist. Width 13.8 % (11.5-14.5); White Blood Cell Count 7.8 10^3/uL (4.8-10.8)
[2025-03-28 07:30] LABS: Blood Urea Nitrogen 26 mg/dl (9-20); Calcium 8.6 mg/dl (8.4-10.2); Carbon Dioxide 27 mmol/L (22-30); Chloride 106 mmol/L (98-107); Estimated Creatinine Clearance 56 ml/min; Glucose 107 mg/dl (70-99); Potassium 3.8 mmol/L (3.5-5.1); Sodium 141 mmol/L (135-145); eGFR > 60.00
[2025-03-28] MEDS: TOPROL XL 25 MG PO (08:10)
[2025-03-28] MEDS: PEPCID 40 MG PO (08:11)
[2025-03-28] MEDS: PACERONE 200 MG PO ×2 (08:11→19:44)
[2025-03-28] MEDS: LOW STRENGTH ASPIRIN 81 MG PO (08:11)
[2025-03-28] MEDS: PROTONIX 40 MG PO (08:11)
--- NOTE | 2025-03-28 09:25 | W.PN.HOSP.TC ---
Today's Communication/Plan
-
pending placement
ASA, statin
amio, BB
Assessment / Plan
Assessment / Plan
Physical Exam
General: Comfortable
HEENT: Normocephalic
Cardiovascular: regular Rhythm
Respiratory: Non-Labored Respirations
GI: Soft and Non Distended
Neurology: Awake and AO x 3
Skin: Warm
79-year-old male now presenting for acute right sided CVA status post tPA along with new onset atrial fibrillation.
PLAN:
#Acute CVA, right-sided
Likely cardioembolic
� s/p tPA/AT 03/24
� tPA protocol
� Maintain neurochecks
-neurology
� Advance diet as tolerated
� Anticoagulation, aspirin as per neurology, cardiology
� LDL level at goal
� PT/OT
� Echo with hypokinesis noted inferior inferior lateral hypokinesis [place] - should follow up cards outpatient
�Statin added
-ASA
#New onset atrial fibrillation
�Reverted back to sinus rhythm 6�18
� Continue amiodarone
� Eventual Eliquis - 7 days from 03/25 - start 04/01
� Add Toprol 25 mg daily- cleared by Neurology
� Add statin
� TSH 1.61
� Cardiology consulted - f/u outpatient
#Essential Hypertension
-stop amlodipine
-add BB
-Hold ARB - restart as per BP - outpatient
#DVT prophylaxis
� SCDs
# Testosterone use
� Spoke to neurology, holding testosterone indefinitely until cleared by neurology outpatient as may make patient hypercoagulable
DC ready - awaiting ARVIND placement - tomorrow
Anticipated Discharge: Within 24 hours
Subjective/Interval History
-
Date of Service: March 28, 2025
No acute events overnight
Objective Data
-
Labs:
Laboratory Results
03/28/25
06:33
WBC 7.8
Hgb 10.2 L
Hct 30.4 L
Plt Count 177
Sodium 141
Potassium 3.8
Chloride 106
Carbon Dioxide 27
BUN 26 H
Creatinine 1.0
Glucose 107 H
Calcium 8.6
Vital Signs:
Vital Signs
Temp Pulse Resp BP Pulse Ox
97.5 F 54 16 121/87 95
03/28/25 07:55 03/28/25 08:11 03/28/25 07:55 03/28/25 08:11 03/28/25 07:55
I&O
03/27/25 03/28/25 03/29/25
06:59 06:59 06:59
Intake Total 1080 / 1080 960 / 960
Output Total 1100 / 1100
Balance -20 / -20 960 / 960
Review of Systems
-
History Source: Patient
All other systems: Not reviewed unless documented
Data Reviewed
-
CT Scan: Report Reviewed by me
MRI: Report Reviewed by me
Labs: Labs Reviewed by me
--- NOTE | 2025-03-28 15:57 | CHAP ---
Advised by Pastoral [facility] team that Mr. Randall might appreciate a visit. This prototype engineer manager found him in good spirits, listening to an orchestral recording. We discussed Jaxson symphonies and how they can transport the soul. Emotional and spiritual
support provided. Mr. Randall said he looks forward to being discharged to a rehab facility.
[2025-03-28] MEDS: LIPITOR 10 MG PO (17:04)
[2025-03-29 03:37] VITALS: BP 106/50
[2025-03-29 07:15] VITALS: BP 134/68
[2025-03-29] MEDS: TOPROL XL 25 MG PO (07:53)
[2025-03-29] MEDS: PROTONIX 40 MG PO (07:53)
[2025-03-29] MEDS: PEPCID 40 MG PO (07:53)
[2025-03-29] MEDS: PACERONE 200 MG PO (07:53)
[2025-03-29] MEDS: LOW STRENGTH ASPIRIN 81 MG PO (07:53)
[2025-03-29 07:56] LABS: Hematocrit 30.6 % (39.0-52.0); Hemoglobin 10.7 g/dL (13.0-18.0); Mean Corpuscular Hgb 30.7 pg (27.0-31.0); Mean Corpuscular Volume 87.7 fL (80.0-94.0); Platelet Count 188 10^3/uL (130-400); Red Blood Cell Count 3.49 10^6/uL (4.70-6.10); White Blood Cell Count 7.2 10^3/uL (4.8-10.8)
--- NOTE | 2025-03-29 08:17 | CM ---
NIKOLAY from [place] and [facility] p#[phone] requesting additional documentation. Progress note faxed to [phone].
TC from [facility] to check and see if auth received yet, would prefer early d/c.
[2025-03-29 08:35] LABS: Blood Urea Nitrogen 22 mg/dl (9-20); Calcium 8.2 mg/dl (8.4-10.2); Carbon Dioxide 29 mmol/L (22-30); Chloride 107 mmol/L (98-107); Estimated Creatinine Clearance 62 ml/min; Potassium 3.7 mmol/L (3.5-5.1); Sodium 141 mmol/L (135-145); eGFR > 60.00
--- NOTE | 2025-03-29 09:16 | CM ---
Addendum entered by Rani Judge 03/29/25 10:25:
Spouse updated and left VM for Maddy/[facility]
Please updated spouse and maddy with transport time.
Addendum entered by Rani Judge 03/29/25 09:45:
TC from [facility], approved skilled rehab @ [facility]
Start date 03/29/25, NRD 03/31/25
Authorization #[id number], case reference # [id number]
Updates to fax # [phone]
Patient will require a WC van.
Original Note:
VM from [facility] MARISSA Krause p#[phone] requesting additional documentation. Progress note faxed to [phone] and received. Auth (P).
TC from [facility], [facility] to check and see if auth received yet, would prefer early d/c.
[2025-03-29 09:24] LABS: Glucose 98 mg/dl (70-99)
[2025-03-29 11:00] VITALS: BP 136/63
--- NOTE | 2025-03-29 11:26 | CM ---
Addendum entered by STEPHANIE Hoang 03/29/25 11:34:
Second number for facility is fax Not Report [phone].
Original Note:
Spoke with CM Ultrasound Technol who obtained auth for patient through [place] [facility]. Details in last note, regarding auth. Placed a call to patient's Significant Other to update. She stated that she is greatly relieved and agreeable to transfer.
Advised patient's S.O with information regarding w/c van. She stated that the cost of no problem.
Placed a call to Ellen in admissions at [facility] who confirmed that she can accept patient today. # For report [phone] and Report [phone].
Attending updated.
Will update RN. 4e loading unit operator crimping updated and stated that she will arrange for transportation.
Transfer sheet completed and provided to Seafood Packer.
IMM Reviewed, on chart.
Plan: Case management will continue to follow and assist with discharge planning. [facility], Today.
--- NOTE | 2025-03-29 13:17 | W.PN.HOSP.TC ---
Today's Communication/Plan
-
d/c snf rehab
Assessment / Plan
Assessment / Plan
#Acute CVA, right-sided
Likely cardioembolic
� s/p tPA/AT 03/24
- Patient has been maintained on aspirin/statin, to be transition to Eliquis on 04/01
� Echo with hypokinesis noted inferior inferior lateral hypokinesis [place] - should follow up cards outpatient
- discharge to snf rehab
#New onset atrial fibrillation
�Reverted back to sinus rhythm 6�18
� Continue amiodarone
� Eventual Eliquis - 7 days from 03/25 - start 04/01
� Add Toprol 25 mg daily- cleared by Neurology
#Essential Hypertension
- Metoprolol added to regimen. Valsartan held with low blood pressure can be resumed once blood pressure allows
# Testosterone use
h/o prostate cancer
� Patient stated of his testosterone level 0 from Lupron therapy for prostate cancer, stated that urologist provides testosterone
- not sure if this is true and have requested to discuss with prescribing physician
- Neurology have recommended patient to remain off of testosterone indefinitely
DVT prophylaxis � SCDs
More than 30 minutes spent in discharge including
Final examination of the patient
Summarizing hospital stay
Instructions for continuing care to all relevant caregivers
Preparation of discharge records, prescriptions, and referral forms
Total time spent (in minutes): 39 mins
Anticipated Discharge: Today
Subjective/Interval History
-
Date of Service: March 29, 2025
No reported issues overnight
Objective Data
-
Labs:
Laboratory Results
03/29/25
06:46
WBC 7.2
Hgb 10.7 L
Hct 30.6 L
Plt Count 188
Sodium 141
Potassium 3.7
Chloride 107
Carbon Dioxide 29
BUN 22 H
Creatinine 0.9
Glucose 98
Calcium 8.2 L
Vital Signs:
Vital Signs
Temp Pulse Resp BP Pulse Ox
98.1 F 57 18 136/63 96
03/29/25 11:00 03/29/25 11:00 03/29/25 11:00 03/29/25 11:00 03/29/25 11:00
I&O
03/28/25 03/29/25 03/30/25
06:59 06:59 06:59
Intake Total 960 / 960 1170 / 1170
Output Total 725 / 725
Balance 960 / 960 445 / 445
Review of Systems
-
Respiratory: Reports No Symptoms
Cardiac: Reports No Symptoms
Abdomen/GI: Reports No Symptoms
Physical Exam
-
General: Negative Appears in Distress
HEENT: Negative Oxygen
Neuro: Awake, Alert and Oriented
--- NOTE | 2025-03-29 13:21 | W.DCSUMMARY ---
Discharge Summary
Discharge Data
Date of Admission: 03/24/25
Date of Discharge: 03/29/25
-
Pending Results: No
Hospital Course
Discharging Physician : Dr Ryan Leary
Disposition : Acute rehab
Primary care physician : Dr. Noam Brooks
Principal Discharge diagnosis :
Right-sided acute stroke, presumed cardioembolic
New diagnosis of atrial fibrillation
Chronic Discharge diagnosis :
Essential hypertension
History of prostate cancer on Lupron
On testosterone replacement therapy
Hospital Course :
Patient is 79-year-old male with above-mentioned past medical history came to ER for new onset of left arm weakness and some difficulty with speech. In ER evaluation there was concern of patient having new stroke. A CT head and CTA head and neck
was done which showed a possible nonocclusive thrombus in M3 segment of right carotid artery. Patient was provided tenecteplase after discussion with neurology and patient was admitted to ICU for further monitoring. A follow-up MRI brain showed
acute infarct involving the right mcdowell radiata and few small infarcts involving the posterior right insular cortex and frontal operculum. Patient was also diagnosed to have new A-fib and denied of having a previous history of this. Cardiology
was involved in care and patient was started on amiodarone. Patient on echocardiogram which showed preserved ejection fraction with no ventricular clot. Echo was not a bubble study. Posthospitalization patient was cleared to be started on Eliquis
after 7 days which will be on 04/01. Patient's stroke was felt to be possibly cardioembolic in nature and beside A-fib , testosterone use was felt to be adding to the issue. Neurology recommended patient to be remain off of testosterone permanently
moving forward. Patient was evaluated by physical therapy and was deemed appropriate for acute rehab. Patient discharged to acute rehab post medical stabilization.
Important imaging findings :
None
Procedure findings :
None
Discharge Plan
-
Patient Disposition: Senior Care/SNF
Discharge Diagnosis/Procedures: Acute right MCA territory CVA, treated with TNK 03/24/25
Newly diagnosed Afib of unclear duration
spontaneously converted to SR during echo 03/24/25
Condition: Fair
Diet: Low Fat and Low Cholesterol
Activity: As tolerated
Driving Restrictions: No driving until cleared by Rehab physician
Bathing Restrictions: OK to Shower
Blood Work: cbc and bmp in 5-7 days with pcp
Activity Restrictions/Additional Instructions:
Start Eliquis on 04/01/25.
STOP Aspirin 81mg once on eliquis
Referrals:
Ania Robertson PA-C [Specified Professional Personl, Cardiology] - 04/20/25 9:40 am
Referral Note: You have a follow-up appointment with Dr. Leach's physician assistant news director, Ania Robertson at the [place] office.
Jeramy Craig MD [Active, Neurology] - in one to two weeks
Noam Brooks DO [Family Provider, Family Practice] - in less than 1 week
Additional Discharge Medication Instructions: Start Eliquis on 04/01/25 - which is 7 days after from 03/25/25.
Prescriptions:
New
atorvastatin 10 mg Tablet
10 mg PO QPM 30 Days Qty: 30 0RF
aspirin 81 mg Tablet,Chewable
81 mg PO DAILY 30 Days Qty: 30 0RF
metoprolol succinate 25 mg Tablet Extended Release 24 Hr
25 mg PO DAILY 30 Days Qty: 30 0RF
Eliquis 5 mg tablet
5 mg PO BID 30 Days Qty: 60 0RF
Rx Instructions:
start 04/01/25 - 7 days after 03/25/25
amiodarone 200 mg Tablet
200 mg PO BID 30 Days Qty: 60 0RF
Continued
omeprazole 20 MG capsule,delayed release(/EC)
40 mg PO DAILY
Glucosamine Sulf-Chondroitin 1 EACH capsule
1 cap PO DAILY
cholecalciferol (vitamin D3) 2,000 UNITS tablet
2,000 units PO DAILY
omega 7-gzv-qgx-fish oil [Fish Oil] 1 EACH capsule
1 cap PO DAILY
coenzyme Q10 [CoQ-10] 100 mg Capsule
400 mg PO DAILY
vitamin K2 100 mcg Capsule
100 mcg PO DAILY
Boswellia john-turmeric xt 500 mg Capsule
1 cap PO DAILY
famotidine [Pepcid] 40 mg Tablet
40 mg PO DAILY
magnesium glycinate 100 mg Tablet
100 mg PO DAILY
vitamin A 2,400 mcg Capsule
2,400 mcg PO DAILY
fluticasone propionate 44 mcg/actuation Hfa Aerosol Inhaler
1 puff INHALATION R BIDPRN PRN (Reason: sob)
vitamin B complex Tablet
1 tab PO DAILY
Collagen Skin Renewal 30-833.3 mg Tablet
1 tab PO DAILY
Held
valsartan 80 MG tablet
160 mg PO DAILY
Hold Instructions: Resume on 04/01/25. until cleared by pcp after addition of metoprolol
testosterone 20.25 mg/1.25 gram (1.62 %) gel in metered-dose pump
3 pump topical DAILY
Hold Instructions: Resume on 04/01/25. hold until cleared by pcp
Patient Comments:
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
Discontinued
amlodipine 5 mg Tablet
5 mg PO DAILY
Discharge Orders:
Discharge Patient (As Directed); Ordered 03/29/25
Ordered By: Ryan Leary
Discharge Date and Time
Discharge Date/Time: 03/29/25 16:21
Print Language: SAMMARINESE
[2025-03-29 15:05] VITALS: BP 137/60
== END 2025-03-29 16:21 | DRG 62 ==
LOC: 4 EAST ACU 10:22
PROVIDERS: Family Medicine; ADMITTING PHYSICIAN Internal Medicine; ATTENDING PHYSICIAN Hospitalist; CONSULT PHYSICIAN Internal Medicine Cardiovascular Disease; CONSULT PHYSICIAN Psychiatry & Neurology Neurology; EMERGENCY PHYSICIAN Emergency Medicine; FAMILY PHYSICIAN Family Medicine; OTHER PHYSICIAN Internal Medicine Critical Care Medicine
PROC: 3E03317 Introduction of Other Thrombolytic into Peripheral Vein, Percutaneous Approach (ICD-10-PCS; 2025-03-24)
DX: I63.411 Cerebral infarction due to embolism of right middle cerebral artery (principal); G93.40 Encephalopathy, unspecified; F17.200 Nicotine dependence, unspecified, uncomplicated; I48.91 Unspecified atrial fibrillation; I10 Essential (primary) hypertension; Z79.01 Long term (current) use of anticoagulants; Z79.899 Other long term (current) drug therapy
CPT/HCPCS: 0042T; 70450; 70496; 70498; 70551; 71045; 80048; 80053; 80061; 82962; 84443; 84484; 85025; 85027; 85610; 85730; 92523; 92526; 92610; 93005; 93306; 96374; 96375; 97112; 97116; 97129; 97163; 97167; 97535; 99291; J3101; Q9967

== ENCOUNTER → 2025-05-26 14:27 | Outpatient (REF) | payer OTHER, SELFPAY | LOC: HWRAD 14:27 | PROVIDERS: ATTENDING PHYSICIAN Family Medicine; FAMILY PHYSICIAN Family Medicine | DX: R31.9 Hematuria, unspecified (principal) | CPT/HCPCS: 74176 ==

== ENCOUNTER → 2025-07-12 10:46 | Outpatient (REF) | payer OTHER, SELFPAY | LOC: PAVMRI 10:46 | PROVIDERS: ATTENDING PHYSICIAN Internal Medicine Gastroenterology; FAMILY PHYSICIAN Family Medicine | DX: K86.89 Other specified diseases of pancreas (principal) | CPT/HCPCS: 74183; A9575 ==

== ENCOUNTER → 2025-08-03 06:59 | Outpatient (REF) | payer OTHER, SELFPAY | LOC: RAD 06:59 | PROVIDERS: ATTENDING PHYSICIAN Urology; FAMILY PHYSICIAN Family Medicine | DX: R31.0 Gross hematuria (principal) | CPT/HCPCS: 74178; Q9967 ==